=== PATIENT | female | born 1980 | race Caucasian/White ===

== ENCOUNTER 2017-10-04 08:46 | Day surgery (SDC) | payer OTHER, MEDICAID ==
[2017-10-04] MEDS ORDERED: ROPIvacaine 0.5% 30 ML INJECTION (J2795 PER 1MG) (08:47)
[2017-10-04] MEDS ORDERED: EPINEPHrine INJ 1 MG/ML 1ML AMP (08:47)
[2017-10-04 09:24] LABS: CONTROL LINE UCG INT CTR LINE PRESENT; URINE PREG TEST NEGATIVE (NEGATIVE)
[2017-10-04] MEDS: VANCOMYCIN HCL 1,000 MG, VIAL MATE ADAPTER 1 EACH in D5W 250 ML IV (09:30)
[2017-10-04] MEDS: LR 1,000 ML IV ×3 (09:49→17:18)
[2017-10-04] MEDS ORDERED: MIDAZOLAM INJ 2 MG/2 ML VIAL (J2250) As Ordered (10:21)
[2017-10-04] MEDS ORDERED: fentaNYL 100 MCG/2 ML INJECTION (J3010) As Ordered ×3 (10:21→12:09)
[2017-10-04] MEDS: fentaNYL 100 MCG/2 ML INJECTION (J3010) IV ×5 (10:34→15:30)
[2017-10-04] MEDS: MIDAZOLAM INJ 2 MG/2 ML VIAL (J2250) IV ×2 (10:34→10:36)
[2017-10-04] MEDS ORDERED: PROPOFOL 200 MG/20 ML VIAL As Ordered (11:07)
[2017-10-04] MEDS ORDERED: dexameTHASONE 4 MG/ML 1ML VIAL (J1100) As Ordered ×2 (11:08)
[2017-10-04] MEDS ORDERED: KETOROLAC 60 MG/2 ML VIAL (J1885) As Ordered (11:08)
[2017-10-04] MEDS ORDERED: ONDANSETRON 4MG/2ML VIAL (J2405) As Ordered ×2 (11:08→15:15)
[2017-10-04] MEDS: ROPIvacaine 0.5% 30 ML INJECTION (J2795 PER 1MG) As Ordered (12:10)
[2017-10-04] MEDS ORDERED: MEPERIDINE INJ 25 MG/ML VIAL (J2175) As Ordered (15:14)
[2017-10-04] MEDS: PERCOCET 5MG/325MG TAB PO ×2 (15:15→15:45)
[2017-10-04] MEDS ORDERED: PERCOCET 5MG/325MG TAB As Ordered (15:15)
[2017-10-04] MEDS: MEPERIDINE INJ 25 MG/ML VIAL (J2175) IV ×2 (15:15→15:20)
[2017-10-04] MEDS ORDERED: METOCLOPRAMIDE INJ 10MG/2ML VIAL (J2765) IV (15:30)
[2017-10-04] MEDS ORDERED: FLEET ENEMA PR (15:30)
[2017-10-04] MEDS ORDERED: ACETAMINOPHEN TAB 650MG DOSE (2X325MG) PO (15:30)
[2017-10-04] MEDS ORDERED: ONDANSETRON 4MG/2ML VIAL (J2405) IV (15:30)
[2017-10-04] MEDS ORDERED: MORPHINE 4 MG/ML 1ML VIAL/SYRINGE (J2270) IV (15:45)
[2017-10-04] MEDS: ANEXSIA, NORCO 7.5MG/325MG TABLET(HYDROCODONE/APAP) PO ×2 (17:18→21:09)
[2017-10-04] MEDS: MORPHINE 15 MG SA TAB PO (22:30)
[2017-10-04] MEDS: ONDANSETRON 4MG/2ML VIAL (J2405) IV (22:53)
[2017-10-05] MEDS: LR 1,000 ML IV ×2 (01:30→11:11)
[2017-10-05] MEDS: ANEXSIA, NORCO 7.5MG/325MG TABLET(HYDROCODONE/APAP) PO ×5 (02:17→19:46)
[2017-10-05] MEDS: ONDANSETRON 4MG/2ML VIAL (J2405) IV (07:57)
[2017-10-05] MEDS: HEPARIN SOD (PORCINE) 5000 UNITS/ML VIAL SQ ×2 (07:58→15:43)
[2017-10-05] MEDS: MIRALAX *UNIT DOSE* 17GM PACKET PO (09:21)
[2017-10-05] MEDS: MORPHINE 15 MG SA TAB PO (09:21)
[2017-10-05] MEDS: diazePAM 5 MG TAB PO (13:25)
== END 2017-10-05 20:00 | disposition home or self-care (01) ==
LOC: M SDC 08:46 → M MS5PR 16:10 → M SDC 10-05 20:00
DX: M22.42 Chondromalacia patellae, left knee (principal); M22.2X2 Patellofemoral disorders, left knee; K21.9 Gastro-esophageal reflux disease without esophagitis; Z98.84 Bariatric surgery status; Z79.899 Other long term (current) drug therapy
CPT/HCPCS: 27418

== ENCOUNTER → 2017-10-11 | Outpatient (CLI) | payer OTHER, MEDICAID | LOC: M RAD 13:46 | DX: M79.662 Pain in left lower leg (principal) | CPT/HCPCS: 93971 ==

== ENCOUNTER 2018-02-15 09:35 | Day surgery (SDC) | payer OTHER ==
[2018-02-15] MEDS: LR 1,000 ML IV ×4 (10:00→23:54)
[2018-02-15 10:20] LABS: CONTROL LINE UCG INT CTR LINE PRESENT; URINE PREG TEST NEGATIVE (NEGATIVE)
[2018-02-15] MEDS: BUPIVACAINE HCL 0.5% 30 ML VIAL As Ordered (11:17)
[2018-02-15] MEDS ORDERED: ROCURONIUM BROMIDE 50 MG/5 ML VIAL As Ordered (11:24)
[2018-02-15] MEDS ORDERED: LIDOCAINE 2% INJ 100 MG/5 ML SDV (FOR ANES.) As Ordered (11:24)
[2018-02-15] MEDS ORDERED: PROPOFOL 200 MG/20 ML VIAL As Ordered ×5 (11:24→12:23)
[2018-02-15] MEDS ORDERED: fentaNYL 100 MCG/2 ML INJECTION (J3010) As Ordered ×3 (11:25→13:52)
[2018-02-15] MEDS ORDERED: MIDAZOLAM INJ 2 MG/2 ML VIAL (J2250) As Ordered ×2 (11:25→13:38)
[2018-02-15] MEDS ORDERED: REMIFENTANIL 1MG 3ML VIAL As Ordered (11:32)
[2018-02-15] MEDS ORDERED: SCOPOLAMINE 1MG TRANSDERMAL PATCH As Ordered ×2 (11:36→11:39)
[2018-02-15] MEDS ORDERED: dexameTHASONE 4 MG/ML 1ML VIAL (J1100) As Ordered ×2 (11:59)
[2018-02-15] MEDS ORDERED: ONDANSETRON 4MG/2ML VIAL (J2405) As Ordered (13:07)
[2018-02-15] MEDS ORDERED: NEOSTIGMINE 10 MG/10 ML VIAL (J2710) As Ordered (13:07)
[2018-02-15] MEDS ORDERED: GLYCOPYRROLATE INJ 0.2 MG/ML 2 ML VIAL As Ordered (13:15)
[2018-02-15] MEDS ORDERED: KETOROLAC 60 MG/2 ML VIAL (J1885) As Ordered (13:16)
[2018-02-15] MEDS ORDERED: ePHEDrine SULFATE 25 MG/5 ML(5MG/ML) SYRINGE As Ordered (13:22)
[2018-02-15] MEDS ORDERED: ONDANSETRON 4MG/2ML VIAL (J2405) IV (14:00)
[2018-02-15] MEDS: fentaNYL 100 MCG/2 ML INJECTION (J3010) IV ×4 (14:22→14:50)
[2018-02-15] MEDS ORDERED: PERCOCET 5MG/325MG TAB As Ordered (14:45)
[2018-02-15] MEDS: PERCOCET 5MG/325MG TAB PO ×2 (14:50→15:17)
[2018-02-15] MEDS: SCOPOLAMINE 1MG TRANSDERMAL PATCH TOP (18:17)
[2018-02-15] MEDS: ONDANSETRON 4MG/2ML VIAL (J2405) IV (18:24)
[2018-02-15] MEDS: ANEXSIA, NORCO 7.5MG/325MG TABLET(HYDROCODONE/APAP) PO ×2 (18:24→22:32)
[2018-02-16] MEDS: ANEXSIA, NORCO 7.5MG/325MG TABLET(HYDROCODONE/APAP) PO ×2 (02:23→06:22)
== END 2018-02-16 08:40 | disposition home or self-care (01) ==
LOC: M SDC 02-16 08:40 → M MS5PR 15:50
DX: T84.84XA Pain due to internal orthopedic prosthetic devices, implants and grafts, initial encounter (principal); M22.42 Chondromalacia patellae, left knee; M23.42 Loose body in knee, left knee; K21.9 Gastro-esophageal reflux disease without esophagitis; E66.9 Obesity, unspecified; Z68.36 Body mass index [BMI] 36.0-36.9, adult; Z88.5 Allergy status to narcotic agent; Z79.899 Other long term (current) drug therapy; Z87.442 Personal history of urinary calculi; Z86.14 Personal history of Methicillin resistant Staphylococcus aureus infection; Z98.84 Bariatric surgery status
CPT/HCPCS: 20680

== ENCOUNTER 2018-02-28 13:07 | Emergency (ER) | payer OTHER ==
[2018-02-28 14:14] LABS: BASO # 0.1 10^3/uL (0.0-0.2); BASO % 0.5 % (0.0-1.0); EOS # 0.1 10^3/uL (0.0-0.50); HEMATOCRIT 35.9 % (36.0-47.0); IMMATURE GRANULOCYTE % 0.5 % (0-3.0); LYMPH # 2.3 10^3/uL (1.5-4.5); LYMPH % 24.1 % (24.0-44.0); MEAN CORPUSCULAR HEMOGLOBIN 24.6 pg (27.0-33.0); MEAN CORPUSCULAR HGB CONC 30.6 g/dl (32.0-36.5); MEAN CORPUSCULAR VOLUME 80.3 fl (80.0-96.0); MONO # 0.8 10^3/uL (0.0-0.8); MONO % 8.6 % (0.0-5.0); NEUTROPHILS # 6.1 10^3/uL (1.8-7.7); NEUTROPHILS % 65.3 % (36.0-66.0); PLATELET COUNT, AUTOMATED 338 10^3/uL (150-450); RED BLOOD COUNT 4.47 10^6/uL (4.00-5.40); RED CELL DISTRIBUTION WIDTH 16.7 % (11.5-14.5); WHITE BLOOD COUNT 9.4 10^3/uL (4.0-10.0)
[2018-02-28 14:26] LABS: INR 0.94; PROTHROMBIN TIME 12.6 SECONDS (12.1-14.4)
[2018-02-28 14:27] LABS: PARTIAL THROMBOPLASTIN TIME 22.9 SECONDS (25.4-37.6)
[2018-02-28 14:46] LABS: CONTROL LINE HCG INT CTR LINE PRESENT; HCG, SERUM QUALITATIVE NEGATIVE (NEGATIVE)
[2018-02-28 14:55] LABS: ALBUMIN 3.9 GM/DL (3.2-5.2); ALKALINE PHOSPHATASE 61 U/L (45-117); ALT/SGPT 20 U/L (12-78); ANION GAP 10 MEQ/L (8-16); AST/SGOT 25 U/L (7-37); BILIRUBIN,DIRECT < 0.1 MG/DL (0.0-0.2); BILIRUBIN,TOTAL 0.4 MG/DL (0.2-1.0); BLOOD UREA NITROGEN 10 MG/DL (7-18); CARBON DIOXIDE LEVEL 21 MEQ/L (21-32); CHLORIDE LEVEL 107 MEQ/L (98-107); CK-MB VALUE MASS < 1.0 NG/ML (<3.6); CPK CREATINE PHOSPHOKINASE 102 U/L (26-192); FREE T4 0.97 NG/DL (0.76-1.46); GLOMERULAR FILTRATION RATE > 60.0 (>60); GLUCOSE, FASTING 97 MG/DL (70-100); LIPASE 109 U/L (73-393); MB/CK RELATIVE INDEX 0.98 (< OR =4); POTASSIUM SERUM 4.5 MEQ/L (3.5-5.1); SODIUM LEVEL 138 MEQ/L (136-145); TOTAL PROTEIN 6.9 GM/DL (6.4-8.2); TROPONIN I < 0.02 NG/ML (< 0.10)
[2018-02-28] MEDS ORDERED: ISOVUE-370 76% 100ML VIAL (Q9967) As Ordered (15:03)
[2018-02-28 18:02] LABS: CK-MB VALUE MASS < 1.0 NG/ML (<3.6); CPK CREATINE PHOSPHOKINASE 75 U/L (26-192); MB/CK RELATIVE INDEX 1.33 (< OR =4); TROPONIN I < 0.02 NG/ML (< 0.10)
== END 2018-02-28 18:50 | disposition home or self-care (01) ==
LOC: M ED 13:07
DX: R07.89 Other chest pain (principal); R00.2 Palpitations; F41.9 Anxiety disorder, unspecified; Z98.84 Bariatric surgery status; Z79.899 Other long term (current) drug therapy; Z88.1 Allergy status to other antibiotic agents
CPT/HCPCS: Q9967

== ENCOUNTER 2018-12-08 05:45 | Inpatient (IN) | payer OTHER ==
--- NOTE | 2018-12-01 15:26 | HPE ---
DATE OF ANTICIPATED ADMISSION: 12/08/2018 ATTENDING PHYSICIAN: Dr. Ronald Fung CHIEF COMPLAINT: Left knee pain and stiffness. This is a pleasant 38-year-old female patient with left knee pain and stiffness, who has undergone multiple surgeries on the left knee. 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 Ronald Fung. ALLERGIES: VANCOMYCIN. She is also ALLERGIC to KEFLEX. CURRENT MEDICATIONS: - Abilify 2 mg one by mouth every other night - Ambien 12.5 mg one by mouth nightly as needed - diclofenac sodium 1% - gabapentin 300 mg two by mouth three times a day - Prozac 20 mg one by mouth daily PAST MEDICAL HISTORY: SVT. Acid reflux. Anxiety. Depression. PAST SURGICAL HISTORY: Knee arthroscopy, bilateral. Gastric bypass. Kidney stones. FAMILY HISTORY: Father: Heart disease, high cholesterol, hypertension, arthritis. Mother: Arthritis, cancer. SOCIAL HISTORY: Denies smoking, and rarely consumes alcohol. REVIEW OF SYSTEMS: Patient denies fever, chills, chest pain, shortness of breath, nausea, vomiting, diarrhea. Reports left knee pain and stiffness with weightbearing activities. PHYSICAL EXAM: Vital signs: Height 65 inches, weight 255, temperature 98.6, blood pressure 116/80, pulse 72, respirations 17. She is a normocephalic, atraumatic adult female, in no apparent distress. She ambulates in the clinic today with a nonantalgic gait. She has appropriate mood and affect, is alert and oriented. Neck is supple and nontender with no lymphadenopathy or jugular venous distention (JVD). S1 and S2 auscultated with no murmurs, rubs, gallops. Lungs clear to auscultation bilaterally. Abdomen soft, nontender. The left knee shows tenderness to palpation. There is no overlying rash or erythema. Overlying skin is intact. Distal neurovascular status is intact, and the left limb is well perfused. IMPRESSION: Left knee pain and patellar chondromalacia. PLAN: Consented for left knee diagnostic arthroscopy, patellar cartilage repair, and revision internal fixation tubercle nonunion with Dr. Ronald Fung.
[~2018-12-08] VITALS: Ht 165.1 cm; Wt 114.7 kg
[~2018-12-08 05:45] MED LIST: ABIL1TAB13 PO; AMBI12.52 PO; DITR5TAB PO; GABA-1171 PO; HYDR-3713 PO; LAMO200T2 PO; LIDO5OIN28 TD; MS C15TA8 PO; PRAZ2CAP PO; PROT20TA11 PO; PROZ20CA11 PO; RANI150T PO; VALI10TA PO; VALI5TAB PO; VICO5TAB17 PO
[2018-12-08] MEDS ORDERED: LR 1,000 ML IV ONE (06:00)
[2018-12-08] MEDS ORDERED: LIDOCAINE 1% MDV 20ML VIAL SQ PRN (06:00)
[2018-12-08] MEDS ORDERED: CLINDAMYCIN 900 MG in APPROPRIATE DILUENT 1 EA IV ONE ×2 (06:00→15:00)
[2018-12-08] MEDS ORDERED: fentaNYL 100 MCG/2 ML INJECTION (J3010) As Ordered ONE (06:35)
[2018-12-08] MEDS ORDERED: MIDAZOLAM INJ 2 MG/2 ML VIAL (J2250) As Ordered ONE ×2 (06:35→07:17)
[2018-12-08 06:42] LABS: URINE PREG TEST NEGATIVE (NEGATIVE)
[2018-12-08] MEDS ORDERED: SCOPOLAMINE 1MG TRANSDERMAL PATCH As Ordered ONE (07:10)
[2018-12-08] MEDS ORDERED: PROPOFOL 200 MG/20 ML VIAL As Ordered ONE (07:16)
[2018-12-08] MEDS ORDERED: fentaNYL 250 MCG/5 ML INJECTION (J3010) As Ordered ONE ×2 (07:16→10:23)
[2018-12-08] MEDS ORDERED: LIDOCAINE 2% INJ 100 MG/5 ML SDV (FOR ANES.) As Ordered ONE (07:16)
[2018-12-08] MEDS ORDERED: BUPIVACAINE HCL 0.5% 30 ML VIAL As Ordered ONE (07:21)
[2018-12-08] MEDS ORDERED: SCOPOLAMINE 1MG TRANSDERMAL PATCH TOP ONE (07:30)
[2018-12-08] MEDS ORDERED: ROCURONIUM BROMIDE 50 MG/5 ML VIAL As Ordered ONE (07:38)
[2018-12-08] MEDS ORDERED: PHENYLephrine HCL 500 MCG/5 ML (100MCG/ML) SYRINGE (J2370) As Ordered ONE (08:00)
[2018-12-08] MEDS ORDERED: fentaNYL 100 MCG/2 ML INJECTION (J3010) IV ONE (08:15)
[2018-12-08] MEDS ORDERED: MIDAZOLAM INJ 2 MG/2 ML VIAL (J2250) IV ONE (08:15)
[2018-12-08] MEDS ORDERED: KETOROLAC 60 MG/2 ML VIAL (J1885) As Ordered ONE (09:45)
[2018-12-08] MEDS ORDERED: ONDANSETRON 4MG/2ML VIAL (J2405) As Ordered ONE ×2 (09:45→11:21)
[2018-12-08] MEDS ORDERED: dexameTHASONE 4 MG/ML 1ML VIAL (J1100) As Ordered ONE (09:45)
[2018-12-08] MEDS ORDERED: METOCLOPRAMIDE INJ 10MG/2ML VIAL (J2765) As Ordered ONE (09:45)
[2018-12-08] MEDS ORDERED: NEOSTIGMINE 10 MG/10 ML VIAL (J2710) As Ordered ONE (09:46)
[2018-12-08] MEDS ORDERED: GLYCOPYRROLATE INJ 0.2 MG/ML 2 ML VIAL As Ordered ONE (09:46)
[2018-12-08] MEDS ORDERED: ACETAMINOPHEN 1000MG 100ML IV BTL (OFIRMEV) (J0131 PER 10MG) As Ordered ONE (09:46)
[2018-12-08] MEDS ORDERED: LIDOCAINE 1% MDV 20ML VIAL ONE (11:15)
[2018-12-08] MEDS ORDERED: dexameTHASONE 10 MG/1 ML VIAL PRES.FREE (J1100) ONE (11:15)
[2018-12-08] MEDS ORDERED: HYDROMORPHONE HCL 0.5 MG/ 0.5 ML SYRINGE (J1170 PER 1) As Ordered ONE (11:28)
[2018-12-08] MEDS: HYDROMORPHONE HCL 0.5 MG/ 0.5 ML SYRINGE (J1170 PER 1) IV PRN ×2 (11:30→11:35)
[2018-12-08] MEDS ORDERED: ANEXSIA, NORCO 7.5MG/325MG TABLET(HYDROCODONE/APAP) PO PRN (11:45)
[2018-12-08] MEDS ORDERED: LR 1,000 ML IV SCH ×2 (11:45→12:00)
[2018-12-08] MEDS ORDERED: fentaNYL 100 MCG/2 ML INJECTION (J3010) IV PRN (11:45)
[2018-12-08] MEDS ORDERED: ONDANSETRON 4MG/2ML VIAL (J2405) IV PRN ×2 (11:45→12:00)
[2018-12-08] MEDS ORDERED: PERCOCET 5MG/325MG TAB PO PRN (11:45)
[2018-12-08] MEDS ORDERED: MIRALAX *UNIT DOSE* 17GM PACKET PO PRN (12:00)
[2018-12-08] MEDS ORDERED: METOCLOPRAMIDE INJ 10MG/2ML VIAL (J2765) IV PRN (12:00)
--- NOTE | 2018-12-08 12:02 | REP ---
C-ARM VIEWS LEFT KNEE: Three C-arm views of the left knee are performed. Metallic screws are seen in the tibia. The final image shows that they have been removed. 5 seconds of fluoroscopy time utilized. Electronically Signed by Parish Phillip MD 12/08/2018 01:20 P
[2018-12-08 12:10] VITALS: BP 171/94
[2018-12-08 12:40] VITALS: BP 143/84
[2018-12-08 13:40] VITALS: BP 135/75
[2018-12-08 14:40] VITALS: BP 135/75
[2018-12-08] MEDS: ANEXSIA, NORCO 7.5MG/325MG TABLET(HYDROCODONE/APAP) PO PRN ×2 (14:48→20:06)
[2018-12-08] MEDS: GABAPENTIN 300 MG CAP PO SCH ×2 (14:48→20:06)
[2018-12-08] MEDS: MORPHINE 4 MG/ML 1ML VIAL/SYRINGE (J2270) IV PRN ×3 (14:48→23:11)
[2018-12-08 16:00] VITALS: BP 135/75
[2018-12-08 22:00] VITALS: BP 115/64
[2018-12-09] MEDS ORDERED: UNRESOLVED CLARIFICATION ENTRY XX SCH (00:01)
[2018-12-09] MEDS: ANEXSIA, NORCO 7.5MG/325MG TABLET(HYDROCODONE/APAP) PO PRN ×5 (02:20→22:37)
[2018-12-09 06:00] VITALS: BP 113/66
[2018-12-09] MEDS: GABAPENTIN 300 MG CAP PO SCH ×3 (08:26→21:17)
--- NOTE | 2018-12-09 09:46 | CR.PDOC ---
General Date of Consultation: Dec 09, 2018 Consultation REASON FOR CONSULTATION/CHIEF COMPLAINT: Medical co-management HISTORY OF PRESENT ILLNESS: 38 yo female POD #1 for surgical intervention for l eft knee pain. States she had 2-3 episodes of tachycardia/palpitations yesterday with dizziness. Denied chest pain, headaches, changes in vision, abdominal pain, N/V/D. Episodes resolved spontaneously after 2-3 minutes. She describes a history of SVT for the past 12-18 months, but recently had an ablation with no further episodes. ALLERGIES: Please see below. HOME MEDICATIONS: Please see below. PAST MEDICAL HISTORY: 1. SVT s/p ablation 2. GERD 3. anxiety/depression REVIEW OF SYSTEMS: Negative except as per HPI. PHYSICAL EXAMINATION: VITAL SIGNS: Please see below. GENERAL APPEARANCE: General, NAD, lying comfortably in bed HEENT: NC/AT, EOMI, PERRL RESPIRATORY: CTA B/L CARDIOVASCULAR: +S1S2, RRR ABDOMEN: soft, NT, +BS LABORATORY DATA: Please see below. ASSESSMENT/PLAN: 38 yo female POD #1 for left knee surgery secondary to left knee pain, consulted by orthopedics for medical co-management. #left knee pain - POD #1 left knee diagnostic arthroscopy, patellar cartilage repair, and revision internal fixation tubercle nonunion - follow as per ortho - pain control #SVT - continue to monitor for now, perhaps exacerbated by anaesthesia/surgery - carotid massage, however she states vagal maneuvers in the past actually made her palpitations worse #GERD - home meds #anxiety/depression - home meds #DVT prophylaxis - as per ortho Vital Signs/I&O Vital Signs Date Time Temp Pulse Resp B/P (MAP) Pulse Ox O2 Delivery O2 Flow Rate FiO2 12/09/18 09:18 16 12/09/18 06:00 97.0 68 113/66 (82) 97 12/08/18 13:40 2.0 I&O- Last 24 Hours up to 6 AM 12/09/18 06:00 Intake Total 3280 ml Output Total 2325 ml Balance 955 ml Allergies Coded Allergies: cephalexin (Verified Allergy, Unknown, 12/08/18) vancomycin (Verified Allergy, Unknown, red man's syndrome, 12/08/18) Home Medications Scheduled Aripiprazole (Abilify) 2 Mg Tab, 4 MG PO DAILY, (Reported) Fluoxetine HCl (Prozac) 20 Mg Cap, 60 MG PO QAM, (Reported) Lamotrigine (Lamotrigine) 200 Mg Tab, 400 MG PO BID, (Reported) Prazosin Hcl (Prazosin HCl) 2 Mg Cap, 4 MG PO QPM, (Reported) Zolpidem Tartrate (Ambien Cr) 12.5 Mg Tab, 12.5 MG PO QPM, (Reported) SUDARSHAN SANDOVAL MD Dec 09, 2018 09:43
[2018-12-09] MEDS: lamoTRIgine 100MG TAB PO SCH ×2 (10:11→21:16)
[2018-12-09] MEDS: FLUoxetine 20 MG CAP PO SCH (10:11)
[2018-12-09] MEDS: MORPHINE 4 MG/ML 1ML VIAL/SYRINGE (J2270) IV PRN (10:59)
[2018-12-09] MEDS: ARIPiprazole 2 MG TAB PO SCH (11:12)
[2018-12-09] MEDS: MORPHINE 15 MG SA TAB PO SCH ×2 (11:52→21:17)
[2018-12-09 14:41] VITALS: BP 110/56
--- NOTE | 2018-12-09 15:01 | RO ---
DATE OF PROCEDURE: 12/08/2018 PREOPERATIVE DIAGNOSES: 1. 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 2. Left knee painful hardware status post to tubercle osteotomy. POSTOPERATIVE DIAGNOSES: 1. 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 2. Left knee arthritis with several small loose bodies. 3. Left knee painful hardware. PROCEDURE: 1. Left knee arthroscopy with chondroplasty and loose body removal. 2. Left knee open patellar cartilage defect repair with a viable osteochondral allograft. 3. Left knee removal of hardware. SURGEON: Ronald Fung MD LOGISTICS CLERK: ROSE Thornton ANESTHESIA: General with preoperative nerve block. IV FLUIDS: Lactated Ringer's. ESTIMATED BLOOD LOSS: 25 mL. IMPLANTS: Arthrex 2.9 mm PushLock anchor times four. Arthrex Cartiform allograft. CLOSURE: Nylon. PROCEDURE: The patient was identified in the preoperative holding area. The left leg was marked by myself. She then had an abductor canal block by anesthesia. She was brought to the operating room, placed supine on a well-padded OR table. General anesthesia was induced. She had Venodyne boot on her right lower extremity for DVT prophylaxis. She received appropriate IV antibiotics within 1 hour of incision. A well-padded tourniquet was applied to the left thigh. Exam under anesthesia revealed a negative J sign. Range of motion from -3 to 130 degrees and stable to varus-valgus stress, grade 1A Shelby, negative posterior drawer. The left leg was then prepped and draped in a normal sterile fashion from the toes up to the tourniquet. Prior to incision a time out performed per hospital protocol. Bakari Salazar was present for the entire procedure and participated in all essential portions of the procedure. This included patient positioning, draping, holding retractors, maintaining eversion of the patella throughout the majority the case, assisting with placing anchors and passing sutures and wound closure. The left leg was exsanguinated with an Esmarch bandage and tourniquet inflated to 300 mmHg. Total tourniquet time was 129 minutes. Previous anterolateral portal from initial scope was opened with an 11 blade, 30 degree arthroscope introduced into the joint. Diagnostic arthroscopy revealed grade 4 chondral defect in the patella, basically the central to distal patella and then extending midpoint at the medial facette over laterally. The central and medial aspect of the trochlea were pristine. There was grade 2 chondromalacia in the far lateral portion of the trochlea. Distally the trochlea was also pristine. Medial compartment was entered. There was grade 1 chondromalacia. No meniscus tears. ACL was inspected and was unremarkable. The leg was brought to [id number] position where there was grade 2 chondromalacia of the lateral tibial plateau with several small loose bodies. Grade 1 to 2 chondromalacia of lateral femoral condyle. A medial portal was developed and a shaver used to remove several small loose bodies of articular cartilage and a chondroplasty to the lateral tibial plateau and a chondroplasty to the patella. The knee was irrigated and drained. There were no contraindications to cartilage repair surgery. I then proceeded with a medial parapatellar arthrotomy. The previous longitudinal incision was opened with a 15 blade and a fresh 10 blade used to perform the arthrotomy. Patella was everted. The chondral defect was inspected. This measured 25 x 15 mm. A fresh 15 blade and ring curette were used to remove prior cartilage allograft still remaining in the defect as well as some fibrocartilage. Ring curette was used to remove the calcified cartilage layer, but not violate subchondral bone. The Arthrex viable osteochondral allograft measuring 20 x 25 mm was then thawed and open sterilely in the back table. It was approximated to the defect and a 15 blade used to the shape the allograft to fit the defect anatomically. Four separate strands of #4-0 Vicryl were then passed in a horizontal mattress fashion per routine. The PowerPick was used to make five drill holes in the central aspect of the defect with a 3-4 mm bridge. I then marked the allograft in the proposed location of the drill holes for the PushLock anchors. I then used the appropriate drill bit for the short 2.9 mm PushLock and created four anchors basically at the 12, 3, 6 and 9 o'clock positions. The Vicryl sutures were then loaded through a PushLock anchor, which was then tensioned, malleted into place per routine. There was excellent fixation on all four anchors. The graft at this point fit very well. #6-0 Vicryl was then used to place several simple sutures where ever it looked like an edge might want to lift up and this nicely reinforced the repair. I should have mentioned that the knee was extensively irrigated prior to placing the allograft. I then re-irrigated. TISSEEL was then used to reinforce the repair at the juncture of the allograft and iqugmiut healthy articular cartilage of the patella. That was allowed to set for 10 minutes. The patella was then reduced and the arthrotomy closed with figure-of-8 #0 Vicryl sutures with the knee in 40 degrees of flexion. I then used the large C-arm to localize to two tubercle osteotomy screws. I recent CT scan showed excellent bony union from use of the bone stimulator. Two screws were then removed percutaneously with appropriate screwdriver. AP and lateral x-rays were taken a large C-arm. Screws had been completely removed without incident. Tubercle osteotomy on C-arm appeared healed. Next, the incisions were re-irrigated and portals closed with nylon suture. #2-0 Vicryl for the arthrotomy incisions via running #3-0 nylon. I injected 0.5% Marcaine without epinephrine as a local anesthetic at the end of the case. Then bulky sterile dressing was applied. I should have mentioned that the tourniquet was let down around 129 minutes and there was excellent hemostasis. The patient was placed into a hinged knee brace locked in extension. At the time of this dictation she is about to transferred to postanesthesia care unit (PACU) in stable condition. ANESTHESIA The
[2018-12-09] MEDS ORDERED: PRAZOSIN 1 MG CAP PO SCH (21:00)
[2018-12-09] MEDS ORDERED: zolPIDEM CR 6.25MG TABLET (AMBIEN CR) PO SCH (21:00)
[2018-12-09 21:04] VITALS: BP 117/65
[2018-12-09 21:18] VITALS: BP 128/67
[2018-12-10] MEDS: ANEXSIA, NORCO 7.5MG/325MG TABLET(HYDROCODONE/APAP) PO PRN (05:38)
[2018-12-10 06:15] VITALS: BP 116/65
[2018-12-10] MEDS: MORPHINE 15 MG SA TAB PO SCH (08:23)
[2018-12-10 08:30] VITALS: BP 118/76
[2018-12-10] MEDS: ARIPiprazole 2 MG TAB PO SCH (08:52)
[2018-12-10] MEDS: lamoTRIgine 100MG TAB PO SCH (08:52)
[2018-12-10] MEDS: FLUoxetine 20 MG CAP PO SCH (08:52)
[2018-12-10] MEDS: GABAPENTIN 300 MG CAP PO SCH (08:53)
--- NOTE | 2018-12-11 08:59 | IPN ---
DATE: 12/10/2018 CHIEF COMPLAIN: Postoperative day #2 left knee arthroscopy, chondroplasty, open patellar cartilage repair with a viable osteochondral allograft. HISTORY OF PRESENT ILLNESS: This pleasant, 38-year-old female underwent knee surgery two days ago. She is doing well. She is in a little bit of pain and discomfort still, but understands her weightbearing restrictions and followup. Nursing had no concerns. PHYSICAL EXAM: Vital signs: Blood pressure 116/65. Pulse rate 75. Respiratory rate 15 and 96% on room air. Dressings in situ. Left knee is overwrapped with 6 inch Laith bandage. No strikethrough on the dressing. Foot is warm and well perfused. Pedal pulses are normal. She has normal sensation throughout foot. She can wiggle her toes, dorsiflex and plantarflex her foot. ASSESSMENT AND PLAN: 38-year-old female will be discharged home today. She understands her weightbearing restrictions and followup. She had no further questions.
== END 2018-12-10 11:15 | disposition home or self-care (01) | DRG 489 ==
LOC: M OR 05:45 → M MS5PR 12:10
PROVIDERS: ADMIT Orthopaedic Surgery; ATTEND Orthopaedic Surgery
PROC: 0SQD0ZZ Repair Left Knee Joint, Open Approach (ICD-10-PCS; principal; 2018-12-08 07:30)
DX: M22.42 Chondromalacia patellae, left knee (principal); M17.12 Unilateral primary osteoarthritis, left knee; Z79.899 Other long term (current) drug therapy; F41.9 Anxiety disorder, unspecified; F32.9 Major depressive disorder, single episode, unspecified; K21.9 Gastro-esophageal reflux disease without esophagitis; Z88.8 Allergy status to other drugs, medicaments and biological substances

== ENCOUNTER → 2019-01-31 | Outpatient (CLI) | payer OTHER ==
[~2019-01-31] MED LIST changes: +E-Z-GAS II EFFERVESCENT PACKET (SODIUM BICARB./CITRIC ACID/SIMETHICONE) As Ordered ONE; +E-Z-HD 98% w/w 340GM SUSP BTL As Ordered ONE; +E-Z-PAQUE 96% w/w SUSP 176GM BTL As Ordered ONE
--- NOTE | 2019-01-31 16:42 | REP ---
UPPER GI SINGLE CONTRAST The procedure was performed under the direct supervision of Dr. Phillip. The images were reviewed with Dr. Phillip. The hedge trimmer film shows no organomegaly or pathological masses. The test gas pattern is nonspecific. There is an IUD in the central pelvis. There are sutures noted in the left upper quadrant consistent with the patient's history of Radha-en-Y gastric bypass. Liquid barium was administered in the erect and prone oblique positions in order to perform a single contrast upper GI examination. The oral and pharyngeal stages of deglutition are unremarkable. Esophageal transport is prompt and efficient and there is no esophagitis stricture or mucosal ring. There is a sliding type hiatal hernia. There is gastroesophageal reflux demonstrated to the level of the thoracic inlet. The contrast passes through the anastomoses without delay. There is no evidence of stricture or obstruction. There is no evidence of gastritis neoplasm or ulcer disease. The visualized portion of the proximal small bowel appears normal in course and caliber. Impression: There is a sliding type hiatal hernia. There is gastroesophageal reflux demonstrated to above the level of the roma. Postsurgical changes consistent with the patient's history of Radha-en-Y gastric bypass. 0.9 minutes of fluoroscopy time was utilized for this procedure. Electronically Signed by ISAAC Giordano 01/31/2019 02:28 P Electronically Signed by Parish Phillip MD 01/31/2019 04:33 P
== END ==
LOC: M RAD 08:54
PROVIDERS: ATTEND Surgery
DX: R63.5 Abnormal weight gain (principal); Z98.84 Bariatric surgery status; K44.9 Diaphragmatic hernia without obstruction or gangrene; K21.9 Gastro-esophageal reflux disease without esophagitis

== ENCOUNTER → 2020-08-23 | Outpatient (CLI) | payer OTHER ==
[~2020-08-23] MED LIST changes: -E-Z-GAS II EFFERVESCENT PACKET (SODIUM BICARB./CITRIC ACID/SIMETHICONE) As Ordered ONE; -E-Z-HD 98% w/w 340GM SUSP BTL As Ordered ONE; -E-Z-PAQUE 96% w/w SUSP 176GM BTL As Ordered ONE; -LAMO200T2 PO; +LAMO200T3 PO
--- NOTE | 2020-08-23 15:26 | REP ---
INDICATION: PAIN AFTER FALL COMPARISON: None. TECHNIQUE: AP, lateral, bilateral oblique views. FINDINGS: Significant diffuse soft tissue swelling noted. Ankle mortise intact. No acute fracture or dislocation. IMPRESSION: Significant soft tissue swelling. No acute fracture or dislocation. <Electronically signed by Codey Hope > 08/23/20 1522
== END ==
LOC: M WUC 14:47
PROVIDERS: ATTEND Nurse Practitioner Family
DX: M25.571 Pain in right ankle and joints of right foot (principal); W10.8XXA Fall (on) (from) other stairs and steps, initial encounter

== ENCOUNTER 2020-08-27 22:59 | Inpatient (IN) | payer OTHER ==
[~2020-08-27] VITALS: Ht 162.6 cm; Wt 122.7 kg
[2020-08-27] MEDS ORDERED: IBUP80TA PO (23:18)
[2020-08-27] MEDS ORDERED: TOPI25TA10 PO (23:26)
[2020-08-27] MEDS ORDERED: LOPE1CAP5 PO (23:26)
[2020-08-27] MEDS ORDERED: ARIP1TAB2 PO (23:26)
[2020-08-27] MEDS ORDERED: BENZ0.5T23 PO (23:26)
[2020-08-27] MEDS ORDERED: CYAN1000VL IM (23:26)
[2020-08-27] MEDS ORDERED: CLON0.5T2 PO (23:26)
[2020-08-27] MEDS ORDERED: FERR325T18 PO (23:26)
[2020-08-27] MEDS ORDERED: METF500T13 PO (23:26)
[2020-08-27] MEDS ORDERED: OMEP-218 PO (23:26)
[2020-08-28 00:42] LABS: HEMATOCRIT 47.3 % (36.0-47.0); HEMOGLOBIN 15.4 g/dl (12.0-15.5); MEAN CORPUSCULAR HEMOGLOBIN 32.3 pg (27.0-33.0); MEAN CORPUSCULAR HGB CONC 32.6 g/dl (32.0-36.5); MEAN CORPUSCULAR VOLUME 99.2 fl (80.0-96.0); PLATELET COUNT, AUTOMATED 302 10^3/uL (150-450); RED BLOOD COUNT 4.77 10^6/uL (4.00-5.40); WHITE BLOOD COUNT 8.5 10^3/uL (4.0-10.0)
[2020-08-28 01:02] LABS: HCG, SERUM QUALITATIVE NEGATIVE (NEGATIVE)
--- NOTE | 2020-08-28 01:02 | REPVR ---
PROCEDURE INFORMATION: Exam: CT Head Without Contrast Exam date and time: 08/28/2020 12:00 AM Age: 40 years old Clinical indication: Altered mental status/memory loss; Confusion or disorientation; Additional info: AMS TECHNIQUE: Imaging protocol: Computed tomography of the head without contrast. Radiation optimization: All CT scans at this facility use at least one of these dose optimization techniques: automated exposure control; mA and/or kV adjustment per patient size (includes targeted exams where dose is matched to clinical indication); or iterative reconstruction. COMPARISON: CT Head without contrast 06/15/2015 9:27 PM FINDINGS: Brain: Normal. No hemorrhage. Unremarkable white matter. No mass effect. Cerebral ventricles: No ventriculomegaly. Bones/joints: Unremarkable. No acute fracture. Paranasal sinuses: Visualized sinuses are unremarkable. No fluid levels. Mastoid air cells: Visualized mastoid air cells are well aerated. Soft tissues: Unremarkable. IMPRESSION: No acute intracranial abnormality. Electronically signed by: Ryder Goldstein On 08/28/2020 01:01:29 AM
[2020-08-28 01:08] LABS: ACETAMINOPHEN LEVEL < 2.0 UG/ML (10.0-30.0); ALBUMIN 3.5 GM/DL (3.2-5.2); ALT/SGPT 29 U/L (12-78); BILIRUBIN,DIRECT 0.2 MG/DL (0.0-0.2); BILIRUBIN,TOTAL 0.5 MG/DL (0.2-1.0); BLOOD UREA NITROGEN 8 MG/DL (7-18); CALCIUM LEVEL 8.7 MG/DL (8.5-10.1); CARBON DIOXIDE LEVEL 23 MEQ/L (21-32); CHLORIDE LEVEL 109 MEQ/L (98-107); CREATININE FOR GFR 0.92 MG/DL (0.55-1.30); ETHYL ALCOHOL (ETHANOL) < 0.003 % (0.000-0.010); GLOMERULAR FILTRATION RATE > 60.0 (>58); GLUCOSE, FASTING 98 MG/DL (70-100); POTASSIUM SERUM 3.8 MEQ/L (3.5-5.1); SALICYLATE LEVEL < 1.7 MG/DL (5.0-30.0); SODIUM LEVEL 140 MEQ/L (136-145); TOTAL PROTEIN 6.6 GM/DL (6.4-8.2)
[2020-08-28 01:14] LABS: AMPHETAMINES LEVEL URINE NEGATIVE (NEGATIVE); BARBITURATES URINE NEGATIVE (NEGATIVE); BENZODIAZEPINES URINE NEGATIVE (NEGATIVE); CANNABINOIDS URINE NEGATIVE (NEGATIVE); COCAINE METABOLITE URINE NEGATIVE (NEGATIVE); METHADONE URINE NEGATIVE (NEGATIVE); OPIATES URINE NEGATIVE (NEGATIVE); PHENCYCLIDINE URINE NEGATIVE (NEGATIVE)
--- NOTE | 2020-08-28 01:27 | REPVR ---
PROCEDURE INFORMATION: Exam: XR Right Ankle Exam date and time: 08/28/2020 1:17 AM Age: 40 years old Clinical indication: Pain; Ankle; Right; Additional info: Fall TECHNIQUE: Imaging protocol: XR Right ankle. Views: 3 or more views. COMPARISON: CR ANKLE COMPLETE 08/23/2020 3:07 PM FINDINGS: Bones/joints: Normal. Soft tissues: Soft tissue swelling greater laterally. IMPRESSION: No acute osseous abnormality. Electronically signed by: Ryder Goldstein On 08/28/2020 01:27:19 AM
[2020-08-28 01:53] LABS: FREE T4 1.16 NG/DL (0.76-1.46)
[2020-08-28] MEDS ORDERED: MOM 30ML SUSPENSION UDC PO PRN (01:55)
[2020-08-28] MEDS ORDERED: ABIL10TA9 PO (02:24)
[2020-08-28] MEDS ORDERED: ABIL20TA5 PO (02:24)
[2020-08-28] MEDS ORDERED: BENZ-52 PO (02:24)
[2020-08-28 02:32] LABS: RSV AMPLIFICATION NEGATIVE (NEGATIVE)
[2020-08-28] MEDS ORDERED: MIDOTAB PO (02:34)
[2020-08-28] MEDS ORDERED: [UNRECOGNIZED DRUG - CODE] SL (02:34)
[2020-08-28] MEDS ORDERED: LAMO100T3 PO (02:34)
[2020-08-28] MEDS ORDERED: MULT-40 PO (02:34)
[2020-08-28] MEDS ORDERED: IBUP1TAB7 PO (02:34)
[2020-08-28] MEDS ORDERED: IBUP-1857 PO (02:34)
[2020-08-28] MEDS ORDERED: TOPI50TA9 PO (02:34)
[2020-08-28 03:43] VITALS: BP 128/85
[2020-08-28] MEDS ORDERED: BENZTROPINE 1 MG TAB PO PRN (03:45)
[2020-08-28] MEDS: metFORMIN (GLUCOPHAGE) 500MG TAB PO SCH ×2 (07:24→17:16)
[2020-08-28] MEDS ORDERED: ARIPiprazole 10 MG TAB PO SCH ×2 (09:00→21:00)
[2020-08-28] MEDS: TOPIRAMATE (TopAMAX) 25 MG TAB PO SCH ×2 (09:17→21:33)
[2020-08-28] MEDS: FLUoxetine 20 MG CAP PO SCH (09:17)
[2020-08-28] MEDS: clonazePAM 0.5 MG TAB PO SCH ×2 (09:17→21:32)
[2020-08-28] MEDS: lamoTRIgine 100MG TAB PO SCH ×2 (09:17→21:33)
[2020-08-28] MEDS: FERROUS SULFATE 325MG TAB PO SCH (09:18)
[2020-08-28] MEDS: OMEPRAZOLE 20 MG CAP PO SCH (09:18)
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
[2020-08-28] MEDS: ARIPiprazole 10 MG TAB PO SCH ×2 (13:00→21:32)
--- NOTE | 2020-08-28 14:36 | HPEPDOC ---
[facility] Medical History & Physical Date of Admission Aug 28, 2020 Date of Service: Aug 28, 2020 History and Physical CHIEF COMPLAINT: psychotic behavior HISTORY OF PRESENT ILLNESS: Patient is a 40 -year-old , female, who was brought to the ED by her after exhibiting psychotic symptoms and bizarre behaviors. This morning she denies any medical complaints. She notes she missed a step and hurt her right foot. She attributes this to impaired vision from her new glasses. She denies chest pain, shortness of breath, abdominal pain, N/V/D. PAST MEDICAL HISTORY: ALLERGIES: Please see below. REVIEW OF SYSTEMS: Negative except as per HPI HOME MEDICATIONS: Please see below. PHYSICAL EXAMINATION: VITAL SIGNS: See below General: NAD, lying comfortably in bed HEENT: NC/AT, EOMI Lungs: CTA B/L Heart: +S1S2, RRR Abd: obese, soft, NT, +BS Ext: trace edema, right foot in bandages LABORATORY DATA: See below. MICROBIOLOGY: Please see below. A/P: 40 yo female admitted to [facility] for psychotic behavior. #psychosis - as per primary team - psychiatry #right foot injury - denies any symptoms - x-rays on 08/23, 08/28 no acute pathology - previously seen in ED - no acute findings Thank you for this consultation. Please re-consult as needed. Vital Signs Vital Signs Date Time Temp Pulse Resp B/P (MAP) Pulse Ox O2 Delivery O2 Flow Rate FiO2 08/28/20 03:43 98.5 100 18 128/85 (99) 97 Room Air Laboratory Data Labs 24H Laboratory Tests 2 08/28/20 00:19: Nucleated Red Blood Cells % (auto) 0.0, Anion Gap 8, Glomerular Filtration Rate > 60.0, Calcium Level 8.7, Total Bilirubin 0.5, Direct Bilirubin 0.2, Aspartate Amino Transf (AST/SGOT) 29, Alanine Aminotransferase (ALT/SGPT) 29, Alkaline Phosphatase 75, Total Protein 6.6, Albumin 3.5, Albumin/Globulin Ratio 1.1L, Thyroid Stimulating Hormone (TSH) 6.020H, Free Thyroxine 1.16, Human Chorionic Gonadotropin, Qual NEGATIVE, Salicylates Level < 1.7L, Urine Opiates Screen NEGATIVE, Urine Methadone Screen NEGATIVE, Acetaminophen Level < 2.0L, Urine Barbiturates Screen NEGATIVE, Urine Phencyclidine Screen NEGATIVE, Urine Amphetamines Screen NEGATIVE, Urine Benzodiazepines Screen NEGATIVE, Urine Cocaine Metabolite Screen NEGATIVE, Urine Cannabinoids Screen NEGATIVE, Ethyl Alcohol Level < 0.003 08/28/20 01:36: Coronavirus (COVID-19)(PCR) NEGATIVE, Influenza Type A (RT-PCR) NEGATIVE, Influenza Type B (RT-PCR) NEGATIVE, Respiratory Syncytial Virus (PCR) NEGATIVE CBC/BMP Laboratory Tests 08/28/20 00:19 Home Medications Scheduled Aripiprazole (Abilify) 10 Mg Tablet, 10 MG PO QHS Aripiprazole (Abilify) 20 Mg Tablet, 20 MG PO DAILY Clonazepam (Clonazepam) 0.5 Mg Tablet, 0.5 MG PO BID Cyanocobalamin (Cyanocobalamin Injection) 1,000 Mcg/1 Ml Vial, 1,000 MCG IM QMONTH Ferrous Sulfate (Ferrous Sulfate) 325 Mg Tablet, 325 MG PO DAILY Fluoxetine HCl (Prozac) 20 Mg Cap, 60 MG PO DAILY Lamotrigine (Lamotrigine) 100 Mg Tablet, 100 MG PO BID Metformin HCl (Metformin HCl) 500 Mg Tablet, 500 MG PO BID Multivitamin (Multivitamins) 1 Each Tablet, 1 TAB PO DAILY Omeprazole (Omeprazole) 20 Mg Capsule.dr, 20 MG PO DAILY Prazosin Hcl (Prazosin HCl) 2 Mg Cap, 6 MG PO QHS Topiramate (Topiramate) 50 Mg Tablet, 50 MG PO BID Zolpidem Tartrate (Ambien Cr) 12.5 Mg Tab, 12.5 MG PO QHS Scheduled PRN Acetaminophen/Pyrilamine/Caff (Midol Caplet) 1 Each Tablet, 1 TAB PO Q8H PRN for PAIN Benztropine Mesylate (Benztropine Mesylate) 1 Mg Tablet, 3 MG PO BID PRN for EXTRAPYRAMIDAL SYMPTOMS Ibuprofen (Ibuprofen) 800 Mg Tablet, 800 MG PO TID PRN for PAIN Ibuprofen/Acetaminophen (Advil Dual Action 250Mg-125Mg) 125 Mg-250 Mg Tablet, 1 TAB PO Q4H PRN for PAIN Zolpidem Tartrate (Edluar) 5 Mg Tab.subl, 5 MG SL QHS PRN for INSOMNIA Allergies Coded Allergies: vancomycin (Verified Allergy, Unknown, red man's syndrome, 12/08/18) A-FIB/CHADSVASC A-FIB History Current/History of A-Fib/PAF?: No SUDARSHAN SANDOVAL MD Aug 28, 2020 14:36
[2020-08-28 16:00] VITALS: BP 130/76
[2020-08-28 16:10] VITALS: BP 128/73
[2020-08-28] MEDS ORDERED: OLANZapine 5 MG TAB PO SCH (21:00)
[2020-08-28] MEDS: PRAZOSIN 1 MG CAP PO SCH (21:32)
[2020-08-28] MEDS: OLANZapine 2.5MG TABLET PO SCH (21:33)
[2020-08-29 06:43] VITALS: BP 138/83
[2020-08-29] MEDS: metFORMIN (GLUCOPHAGE) 500MG TAB PO SCH ×2 (08:34→17:16)
[2020-08-29] MEDS: FERROUS SULFATE 325MG TAB PO SCH (08:34)
[2020-08-29] MEDS: lamoTRIgine 100MG TAB PO SCH ×2 (08:35→21:25)
[2020-08-29] MEDS: clonazePAM 0.5 MG TAB PO SCH ×2 (08:35→21:25)
[2020-08-29] MEDS: TOPIRAMATE (TopAMAX) 25 MG TAB PO SCH ×2 (08:35→21:25)
[2020-08-29] MEDS: FLUoxetine 20 MG CAP PO SCH (08:36)
[2020-08-29] MEDS: OMEPRAZOLE 20 MG CAP PO SCH (08:36)
[2020-08-29] MEDS: ARIPiprazole 10 MG TAB PO SCH ×2 (08:36→21:25)
[2020-08-29 09:00] VITALS: BP 132/70
[2020-08-29 09:27] LABS: CHOLESTEROL RISK RATIO 3.254 (<5)
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
[2020-08-29] MEDS ORDERED: OLANZapine ORAL DISINTEGRATING TAB 5MG PO ONE (15:05)
[2020-08-29 15:25] LABS: APPEARANCE, URINE CLOUDY (CLEAR); BACTERIA, URINE AUTO 3+ (NEGATIVE); BILIRUBIN, URINE AUTO NEGATIVE (NEGATIVE); BLOOD, URINE BLOOD 1+ (NEGATIVE); COLOR, URINE YELLOW (YELLOW); GLUCOSE, URINE (UA) AUTO NEGATIVE (NEGATIVE); KETONE, URINE AUTO NEGATIVE (NEGATIVE); LEUKOCYTE ESTERASE, URINE AUTO 3+ (NEGATIVE); MUCUS, URINE SMALL (NEGATIVE); NITRITE, URINE AUTO NEGATIVE (NEGATIVE); PROTEIN, URINE AUTO NEGATIVE (NEGATIVE); RBC, URINE AUTO 9 /HPF (0-3); SPECIFIC GRAVITY URINE AUTO 1.006 (1.002-1.035); SQUAMOUS EPITHELIAL CELL UR AU 8 /HPF (0-6); UROBILINOGEN, URINE AUTO 0.2 mg/dL (0.0-2.0); WBC, URINE AUTO 18 /HPF (0-3)
[2020-08-29 16:52] VITALS: BP 124/60
[2020-08-29 16:53] VITALS: BP 124/60
[2020-08-29] MEDS: OLANZapine 2.5MG TABLET PO SCH (21:25)
[2020-08-29] MEDS: PRAZOSIN 1 MG CAP PO SCH (21:26)
[2020-08-30] MEDS: metFORMIN (GLUCOPHAGE) 500MG TAB PO SCH ×2 (07:33→17:14)
[2020-08-30] MEDS: ARIPiprazole 10 MG TAB PO SCH ×2 (09:32→20:52)
[2020-08-30] MEDS: lamoTRIgine 100MG TAB PO SCH ×2 (09:32→20:52)
[2020-08-30] MEDS: FLUoxetine 20 MG CAP PO SCH (09:32)
[2020-08-30] MEDS: clonazePAM 0.5 MG TAB PO SCH ×2 (09:32→20:51)
[2020-08-30] MEDS: FERROUS SULFATE 325MG TAB PO SCH (09:33)
[2020-08-30] MEDS: TOPIRAMATE (TopAMAX) 25 MG TAB PO SCH ×2 (09:33→20:52)
[2020-08-30] MEDS: OMEPRAZOLE 20 MG CAP PO SCH (09:33)
--- NOTE | 2020-08-30 10:38 | MHIPNPDOC ---
[facility] Progress Note Progress Note DATE OF SERVICE: 08/30/20 HISTORY: Patient is a 40 -year-old , Domiciled, , female, who was brought to the ED by her after exhibiting psychotic symptoms and bizarre behaviors. Patient continued to be hypomanic, paranoid and delusional.She attempted to explain what brought her to the ED. She said that her children and were worried about her because she was " very incoherent", Said they had an intervention for her as a family yesterday but she continued to be incoherent. Says that she fell out off her bed at 3 o'clock in the morning and her brought her to the ED. PER ED NOTE; Pt brought to ED by spouse for MHE, pt has reportedly been decompensating for past month exhibiting psychotic sx's/bizarre behaviors. Pt and spouse are pleasant/cooperative, spouse brought pt to ED due to pt decompensating in past month. Pt has hx of Bipolar/Schizoaffective d/o, no prior psych admissions, is seen at [facility] and has been compliant with tx and medications. Per pt and spouse, pt has been decompensating for past month since medication changes, pt also had been drinking regularly but "cut way down" in past 2 weeks, denies any drug use. In past month pt has been more disorganized and confused at times, unable to follow conversations and then accusing others of changing the subject, making bizarre references per spouse "that have nothing to do with what is going on or what we were discussing". Pt also admits to feeling increasingly paranoid, feeling others are talking about her. PT reports AH but denies any commands, states the voices are getting more frequent. Pt also reports VH, seeing various animals in the home including a cat they do not own, another dog(they only have one) and a "stallion", pt has been seen by spouse "petting" animals that are not there. Pt and spouse provided several more examples of various hallucinations and bizarre behaviors from past month. Per spouse, earlier tonight pt called a friend out of state who is also a SW and spoke "gibberish" to her, friend spoke with spouse and suggested he bring pt to ED. Pt and spouse state that things are getting progressively worse, pt denies SI/HI but states "I can't take it anymore". PT is remains pleasant during interview, appears anxious and disheveled, denies drug use however admits to long hx of ETOH abuse, spouse states she "stopped a week ago because I wouldn't buy her anymore alcohol", however pt she had used ETOH in past 24 hours. VITAL SIGNS: See below. CURRENT MEDICATIONS: See below. MENTAL STATUS EXAMINATION: Patient is a 40 -year-old , Domiciled, , female, who was brought to the ED by her after exhibiting psychotic symptoms and bizarre behaviors. General Appearance: unkempt, hospital scrubs/clothing Build: overweight Demeanor: preoccupied Eye Contact: average Activity: anxious Behavior: cooperative Speech: conversant Mood: hypomanic Affect: disorganized Thought Process: flight of ideas, disorganized and scattered Thought Content (Delusions): denies SI, HI, AVH Thought Content (Other): mildly grandiose Thought Content (Aggressive): none reported Perception (Hallucinations): none reported Perception (Other): none reported Cognition (Impairment of): attention/concentration Cognition(Intelligence Est.): borderline Oriented: Awake, Alert, Oriented times three Insight: poor Judgment: Poor Psychosis: Denies DIAGNOSES: Schizoaffective, Bipolar type. ASSESSMENT: Patient is seen today. States she is not rested today because her room mate talked all night long about cats. Reports that her mood is "fine" until her room mate will irritate her. I think that her spending will over take the cast. Reports that she is anxious in general. Reviewed the medication changes and she reports that she is more pleasant. Reports that she is communicating with her , wants to see her kids but understands that there are visiting rules. Reports that her children were driving her crazy the night that she came in, the kid had messed up the house, her was nonchalant about the mess. She reports being upset when the children stepped on a box that had been delivered. She wanted to be alone. Reports that group therapy is not for her. " Reports that she is doing better. When asked about her history of drinking she reports that she drinks everyday, "my is not for drinking and he will say, "You're drunk" " She doesn't believe that she drinks too much. She reports no treatment in the past. "I have been through the thing with discontinuing muscles. I got a shot in my butt because we were out of town." Reports that she does not want to attend groups because peers are fighting in the groups - "They are fighting about the color of orange. Why is this the color orange?" Patient is observed to be scattered, manic, tangential, delusional, euphoric, having flight of ideas, and making nonsensical statements. MANAGEMENT PLAN: Continue all medications. Continue to taper Abilify and titrate Olanzapine. TIME SPENT: 25 minutes. Vital Signs Vital Signs Date Time Temp Pulse Resp B/P (MAP) Pulse Ox O2 Delivery O2 Flow Rate FiO2 08/29/20 21:26 121/79 08/29/20 16:53 97.7 92 16 Room Air 08/29/20 06:43 98 Laboratory Data 24H Labs Laboratory Tests 2 08/29/20 15:02: Urine Color YELLOW, Urine Appearance CLOUDYH, Urine pH 8.0, Urine Specific [place] 1.006, Urine Protein NEGATIVE, Urine Glucose (Auto)(UA) NEGATIVE, Urine Ketones (Auto) NEGATIVE, Urine Blood 1+H, Urine Nitrite NEGATIVE, Urine Bilirubin NEGATIVE, Urine Urobilinogen 0.2, Urine Leukocyte Esterase (Auto) 3+H, Urine WBC (Auto) 18H, Urine RBC (Auto) 9H, Urine Hyaline Casts (Auto) 0, Urine Bacteria (Auto) 3+H, Urine Squamous Epithelial Cells 8, Urine Mucus (Auto) SMALL, Urine Sperm (Auto) Current Medications Current Medications Medications (Trade) Dose Ordered Sig/Reid Route PRN Reason Start Time Stop Time Status Last Admin Dose Admin Acetaminophen (Tylenol Tab) 650 mg Q6HP PRN PO HEADACHE or DISCOMFORT 08/28/20 01:55 Al Hydrox/Mg Hydrox/Simethicone (Mylanta) 30 ml Q4HP PRN PO HEARTBURN/INDIGESTION 08/28/20 01:55 Aripiprazole (AbiLIFY) 10 mg BID PO 08/28/20 09:00 08/30/20 09:32 Aripiprazole (AbiLIFY) 10 mg QHS PO 08/28/20 21:00 08/28/20 12:33 DC Aripiprazole (AbiLIFY) 20 mg DAILY PO 08/28/20 09:00 08/28/20 12:33 DC 08/28/20 09:18 Benztropine Mesylate (Cogentin) 3 mg BID PRN PO EXTRAPYRAMIDAL SYMPTOMS 08/28/20 03:45 Clonazepam (KlonoPIN) 0.5 mg BID PO 08/28/20 09:00 08/30/20 09:32 Ferrous Sulfate (Ferrous Sulfate) 325 mg DAILY PO 08/28/20 09:00 08/30/20 09:33 Fluoxetine HCl (PROzac) 60 mg DAILY PO 08/28/20 09:00 08/30/20 09:32 Home Med (Med Rec Complete!) ASDIRECTED XX 08/28/20 02:35 08/28/20 02:36 DC Lamotrigine (LaMICtal) 100 mg BID PO 08/28/20 09:00 08/30/20 09:32 Magnesium Hydroxide (Milk Of Magnesia) 30 ml DAILYPRN PRN PO CONSTIPATION 08/28/20 01:55 Metformin HCl (Glucophage) 500 mg BID@0800,1800 PO 08/28/20 08:00 08/30/20 07:33 Olanzapine (ZyPREXA) 5 mg BID PO 08/28/20 21:00 08/28/20 12:40 DC Olanzapine (ZyPREXA) 7.5 mg QHS PO 08/28/20 21:00 08/29/20 21:25 Omeprazole (PriLOSEC) 20 mg DAILY PO 08/28/20 09:00 08/30/20 09:33 Prazosin HCl (Minipress) 6 mg QHS PO 08/28/20 21:00 08/29/20 21:26 Topiramate (TopAMAX) 50 mg BID PO 08/28/20 09:00 08/30/20 09:33 Trazodone HCl (Desyrel) 50 mg QHSP PRN PO INSOMNIA 08/28/20 01:55 Allergies Coded Allergies: vancomycin (Verified Allergy, Unknown, red man's syndrome, 12/08/18) MARIA R CONTRERAS VOCAL MUSIC TEACHER Aug 30, 2020 10:15
[2020-08-30 11:56] VITALS: BP 132/70
[2020-08-30 11:58] VITALS: BP 132/70
[2020-08-30 16:11] VITALS: BP 123/77
[2020-08-30] MEDS: OLANZapine 2.5MG TABLET PO SCH (20:51)
[2020-08-30] MEDS: PRAZOSIN 1 MG CAP PO SCH (20:51)
[2020-08-31 06:21] VITALS: BP 118/63
[2020-08-31] MEDS: ARIPiprazole 10 MG TAB PO SCH (08:07)
[2020-08-31] MEDS: FLUoxetine 20 MG CAP PO SCH (08:07)
[2020-08-31] MEDS: metFORMIN (GLUCOPHAGE) 500MG TAB PO SCH ×2 (08:07→17:20)
[2020-08-31] MEDS: OMEPRAZOLE 20 MG CAP PO SCH (08:07)
[2020-08-31] MEDS: FERROUS SULFATE 325MG TAB PO SCH (08:07)
[2020-08-31] MEDS: lamoTRIgine 100MG TAB PO SCH ×2 (08:07→19:49)
[2020-08-31] MEDS: clonazePAM 0.5 MG TAB PO SCH ×2 (08:07→19:49)
[2020-08-31] MEDS: TOPIRAMATE (TopAMAX) 25 MG TAB PO SCH ×2 (08:07→19:49)
--- NOTE | 2020-08-31 13:03 | MHIPN ---
[facility] PROGRESS NOTE DATE: 08/31/2020 This is a video assessment. She is seen in the presence of staff. VITAL SIGNS: Blood pressure 118/63, pulse 81, temperature 97.2. CHIEF COMPLAINT: Says feels good. SUBJECTIVE: Seen for followup. Indicates has been feeling good but is vague on this, though says may have had a better night. Displays difficulties organizing her thoughts. Says appetite is good. Suggests has not been in touch with anyone outside the hospital. MENTAL STATUS EXAMINATION: Neat, cooperative. No agitation. Affect somewhat expansive and displays loose associations of thought, possibly some tangential thoughts as well, and a lot of her thoughts are not in context with what is being discussed. Denies any thoughts of harming herself or anyone else. No overt psychotic features elicited, though delusions are possible. No fluctuation of consciousness. Judgment and insight are compromised. ASSESSMENT: Schizoaffective disorder, bipolar type. Has difficulties with organizing her thoughts, tangential, and these may all signify aminata and psychosis. PLAN: Continue cross-tapering olanzapine with Abilikeviny. This has been started. We will continue with that. Also continue with current observation. She may need closer observation given some intrusiveness as well. Further recommendations will be made depending on the clinical picture.
[2020-08-31 16:03] VITALS: BP 114/67
[2020-08-31] MEDS: OLANZapine 2.5MG TABLET PO SCH (19:49)
[2020-08-31] MEDS: PRAZOSIN 1 MG CAP PO SCH (19:49)
[2020-09-01] MEDS: ACETAMINOPHEN TAB 650MG DOSE (2X325MG) PO PRN (05:32)
[2020-09-01 06:17] VITALS: BP 133/81
[2020-09-01] MEDS: metFORMIN (GLUCOPHAGE) 500MG TAB PO SCH ×2 (07:30→17:10)
[2020-09-01] MEDS: FLUoxetine 20 MG CAP PO SCH (08:59)
[2020-09-01] MEDS: TOPIRAMATE (TopAMAX) 25 MG TAB PO SCH ×2 (08:59→21:31)
[2020-09-01] MEDS: clonazePAM 0.5 MG TAB PO SCH ×2 (09:00→21:31)
[2020-09-01] MEDS: lamoTRIgine 100MG TAB PO SCH ×2 (09:00→21:31)
[2020-09-01] MEDS: OMEPRAZOLE 20 MG CAP PO SCH (09:00)
[2020-09-01] MEDS: FERROUS SULFATE 325MG TAB PO SCH (09:00)
[2020-09-01 16:18] VITALS: BP 125/74
[2020-09-01] MEDS: PRAZOSIN 1 MG CAP PO SCH (21:30)
[2020-09-01] MEDS: ARIPiprazole 10 MG TAB PO SCH (21:31)
[2020-09-01] MEDS: TRIAMCINOLONE ACET 0.1% CREAM 80 GM TOP PRN (22:28)
[2020-09-02 07:06] VITALS: BP 124/79
[2020-09-02] MEDS: metFORMIN (GLUCOPHAGE) 500MG TAB PO SCH ×2 (08:17→17:20)
[2020-09-02] MEDS: lamoTRIgine 100MG TAB PO SCH ×2 (08:41→20:36)
[2020-09-02] MEDS: TOPIRAMATE (TopAMAX) 25 MG TAB PO SCH ×2 (08:42→20:37)
[2020-09-02] MEDS: clonazePAM 0.5 MG TAB PO SCH ×2 (08:42→20:36)
[2020-09-02] MEDS: FERROUS SULFATE 325MG TAB PO SCH (08:42)
[2020-09-02] MEDS: OMEPRAZOLE 20 MG CAP PO SCH (08:43)
[2020-09-02] MEDS: FLUoxetine 20 MG CAP PO SCH (08:43)
[2020-09-02] MEDS: MAALOX 30 ML SUSP *UDC PO PRN (11:41)
--- NOTE | 2020-09-02 13:57 | MHIPNPDOC ---
[facility] Progress Note Progress Note DATE OF SERVICE: 09/02/20 HISTORY: Patient is a 40 -year-old , Domiciled, , female, who was brought to the ED by her after exhibiting psychotic symptoms and bizarre behaviors. Patient continued to be hypomanic, paranoid and delusional.She attempted to explain what brought her to the ED. She said that her children and were worried about her because she was " very incoherent", Said they had an intervention for her as a family yesterday but she continued to be incoherent. Says that she fell out off her bed at 3 o'clock in the morning and her brought her to the ED. PER ED NOTE; Pt brought to ED by spouse for MHE, pt has reportedly been decompensating for past month exhibiting psychotic sx's/bizarre behaviors. Pt and spouse are pleasant/cooperative, spouse brought pt to ED due to pt decompensating in past month. Pt has hx of Bipolar/Schizoaffective d/o, no prior psych admissions, is seen at [facility] and has been compliant with tx and medications. Per pt and spouse, pt has been decompensating for past month since medication changes, pt also had been drinking regularly but "cut way down" in past 2 weeks, denies any drug use. In past month pt has been more disorganized and confused at times, unable to follow conversations and then accusing others of changing the subject, making bizarre references per spouse "that have nothing to do with what is going on or what we were discussing". Pt also admits to feeling increasingly paranoid, feeling others are talking about her. PT reports AH but denies any commands, states the voices are getting more frequent. Pt also reports VH, seeing various animals in the home including a cat they do not own, another dog(they only have one) and a "stallion", pt has been seen by spouse "petting" animals that are not there. Pt and spouse provided several more examples of various hallucinations and bizarre behaviors from past month. Per spouse, earlier tonight pt called a friend out of state who is also a SW and spoke "gibberish" to her, friend spoke with spouse and suggested he bring pt to ED. Pt and spouse state that things are getting progressively worse, pt denies SI/HI but states "I can't take it anymore". PT is remains pleasant during interview, appears anxious and disheveled, denies drug use however admits to long hx of ETOH abuse, spouse states she "stopped a week ago because I wouldn't buy her anymore alcohol", however pt she had used ETOH in past 24 hours. VITAL SIGNS: See below. CURRENT MEDICATIONS: See below. MENTAL STATUS EXAMINATION: Patient is a 40 -year-old , Domiciled, , female, who was brought to the ED by her after exhibiting psychotic symptoms and bizarre behaviors. General Appearance: well-kempt, hospital scrubs/clothing Build: overweight Demeanor: preoccupied Eye Contact: average Activity: fair Behavior: cooperative Speech: conversant, tangential, circumstantial, hyperverbal at times Mood: hypomanic Affect: disorganized, euphoric Thought Process: flight of ideas, disorganized and scattered, loose associations Thought Content (Delusions): denies SI, HI, AVH Thought Content (Other): mildly grandiose Thought Content (Aggressive): none reported Perception (Hallucinations): none reported Perception (Other): none reported Cognition (Impairment of): attention/concentration Cognition(Intelligence Est.): borderline Oriented: Awake, Alert, Oriented times three Insight: poor Judgment: Poor Psychosis: Denies DIAGNOSES: Schizoaffective, Bipolar type. ASSESSMENT: Seen today, continues to be disorganized and scattered, loose associations, and hypomanic. Patient's orientation is compromised. She salvatore eves that her children are running in the hospital and are loose running amuck. She reports that she feels stressed and depressed. She is tangential and circumstantial, has nonsensical statements in her interview. She believes that her rings and glasses were stolen, that she fell. Much of her conversation was quite disorganized. Patient is not stable and continues to have poor insight and judgment. MANAGEMENT PLAN: Continue all medications. Continue to taper Abilify and titrate Olanzapine. Olanzapine 5 mg in AM. Abilify in AM discontinued. TIME SPENT: 25 minutes. Vital Signs Vital Signs Date Time Temp Pulse Resp B/P (MAP) Pulse Ox O2 Delivery O2 Flow Rate FiO2 09/02/20 07:06 97.3 104 20 124/79 (94) 97 Room Air Current Medications Current Medications Medications (Trade) Dose Ordered Sig/Reid Route PRN Reason Start Time Stop Time Status Last Admin Dose Admin Acetaminophen (Tylenol Tab) 650 mg Q6HP PRN PO HEADACHE or DISCOMFORT 08/28/20 01:55 09/01/20 05:32 Al Hydrox/Mg Hydrox/Simethicone (Mylanta) 30 ml Q4HP PRN PO HEARTBURN/INDIGESTION 08/28/20 01:55 09/02/20 11:41 Aripiprazole (AbiLIFY) 5 mg QAM PO 09/01/20 09:00 09/02/20 08:43 Aripiprazole (AbiLIFY) 10 mg BID PO 08/28/20 09:00 08/31/20 12:00 DC 08/31/20 08:07 Aripiprazole (AbiLIFY) 10 mg QHS PO 08/28/20 21:00 08/28/20 12:33 DC Aripiprazole (AbiLIFY) 10 mg QHS PO 09/01/20 21:00 09/01/20 21:31 Aripiprazole (AbiLIFY) 20 mg DAILY PO 08/28/20 09:00 08/28/20 12:33 DC 08/28/20 09:18 Benztropine Mesylate (Cogentin) 3 mg BID PRN PO EXTRAPYRAMIDAL SYMPTOMS 08/28/20 03:45 Clonazepam (KlonoPIN) 0.5 mg BID PO 08/28/20 09:00 09/02/20 08:42 Ferrous Sulfate (Ferrous Sulfate) 325 mg DAILY PO 08/28/20 09:00 09/02/20 08:42 Fluoxetine HCl (PROzac) 60 mg DAILY PO 08/28/20 09:00 09/02/20 08:43 Home Med (Med Rec Complete!) ASDIRECTED XX 08/28/20 02:35 08/28/20 02:36 DC Lamotrigine (LaMICtal) 100 mg BID PO 08/28/20 09:00 09/02/20 08:41 Magnesium Hydroxide (Milk Of Magnesia) 30 ml DAILYPRN PRN PO CONSTIPATION 08/28/20 01:55 Metformin HCl (Glucophage) 500 mg BID@0800,1800 PO 08/28/20 08:00 09/02/20 08:17 Olanzapine (ZyPREXA) 5 mg BID PO 08/28/20 21:00 08/28/20 12:40 DC Olanzapine (ZyPREXA) 7.5 mg QHS PO 08/28/20 21:00 09/01/20 09:00 DC 08/31/20 19:49 Olanzapine (ZyPREXA) 10 mg QHS PO 09/02/20 21:00 Omeprazole (PriLOSEC) 20 mg DAILY PO 08/28/20 09:00 09/02/20 08:43 Prazosin HCl (Minipress) 6 mg QHS PO 08/28/20 21:00 09/01/20 21:30 Topiramate (TopAMAX) 50 mg BID PO 08/28/20 09:00 09/02/20 08:42 Trazodone HCl (Desyrel) 50 mg QHSP PRN PO INSOMNIA 08/28/20 01:55 Triamcinolone Acetonide (Kenalog 0.1% Cream) APPLY TO MEDIAL THIGH AREA BIDP PRN TOP irritation 09/01/20 22:10 09/01/20 22:28 Allergies Coded Allergies: vancomycin (Verified Allergy, Unknown, red man's syndrome, 12/08/18) MARIA R CONTRERAS DIRECTOR OF DIGITAL TECHNOLOGY September 02, 2020 12:09
[2020-09-02] MEDS: TRIAMCINOLONE ACET 0.1% CREAM 80 GM TOP PRN (14:23)
[2020-09-02 18:00] VITALS: BP 119/78
[2020-09-02] MEDS ORDERED: OLANZapine ORAL DISINTEGRATING TAB 5MG PO PRN (18:40)
[2020-09-02] MEDS: ARIPiprazole 10 MG TAB PO SCH (20:36)
[2020-09-02] MEDS: hydrOXYzine 50 MG TAB PO SCH (20:36)
[2020-09-02] MEDS: PRAZOSIN 1 MG CAP PO SCH (20:37)
[2020-09-02] MEDS ORDERED: OLANZapine 10 MG TAB PO SCH (21:00)
--- NOTE | 2020-09-02 21:11 | MHIPN ---
[facility] PROGRESS NOTE DATE: 09/01/2020 VITAL SIGNS: Blood pressure 125/74, pulse 97, temperature 98. This is a video assessment, she is seen in the presence of staff. CHIEF COMPLAINT: Says is doing well. SUBJECTIVE: She is seen for followup. Indicates feels good, but that she feels bored. Says her mind races quite quickly, but she slept a bit better. MENTAL STATUS EXAMINATION: Neat, cooperative, no agitation, no psychomotor retardation. She displays a less expansive affect, it is overall somewhat narrower than yesterday, and she is more coherent. Denies any thoughts of harming herself or anyone else. Cognition grossly intact. Judgment and insight remain compromised, though somewhat improved. ASSESSMENT: Schizoaffective disorder, bipolar type. Currently less overtly manic. PLAN: She is to continue with the cross-tapering of the olanzapine and Abilify. She is to be encouraged to participate in activities as tolerated. She will be seen by the assigned clinician tomorrow.
[2020-09-03] MEDS: hydrOXYzine 50 MG TAB PO SCH ×3 (04:52→11:07)
[2020-09-03 06:39] VITALS: BP 115/54
[2020-09-03] MEDS: metFORMIN (GLUCOPHAGE) 500MG TAB PO SCH ×2 (08:35→17:31)
[2020-09-03] MEDS: clonazePAM 0.5 MG TAB PO SCH ×2 (08:46→21:49)
[2020-09-03] MEDS: lamoTRIgine 100MG TAB PO SCH ×2 (08:46→21:49)
[2020-09-03] MEDS: FERROUS SULFATE 325MG TAB PO SCH (08:46)
[2020-09-03] MEDS: TOPIRAMATE (TopAMAX) 25 MG TAB PO SCH ×2 (08:47→21:48)
[2020-09-03] MEDS: FLUoxetine 20 MG CAP PO SCH (08:47)
[2020-09-03] MEDS: OMEPRAZOLE 20 MG CAP PO SCH (08:47)
[2020-09-03] MEDS ORDERED: OLANZapine 5 MG TAB PO SCH (09:00)
--- NOTE | 2020-09-03 12:13 | MHIPNPDOC ---
[facility] Progress Note Progress Note DATE OF SERVICE: 09/03/20 HISTORY: Patient is a 40 -year-old , Domiciled, , female, who was brought to the ED by her after exhibiting psychotic symptoms and bizarre behaviors. Patient continued to be hypomanic, paranoid and delusional.She attempted to explain what brought her to the ED. She said that her children and were worried about her because she was " very incoherent", Said they had an intervention for her as a family yesterday but she continued to be incoherent. Says that she fell out off her bed at 3 o'clock in the morning and her brought her to the ED. PER ED NOTE; Pt brought to ED by spouse for MHE, pt has reportedly been decompensating for past month exhibiting psychotic sx's/bizarre behaviors. Pt and spouse are pleasant/cooperative, spouse brought pt to ED due to pt decompensating in past month. Pt has hx of Bipolar/Schizoaffective d/o, no prior psych admissions, is seen at [facility] and has been compliant with tx and medications. Per pt and spouse, pt has been decompensating for past month since medication changes, pt also had been drinking regularly but "cut way down" in past 2 weeks, denies any drug use. In past month pt has been more disorganized and confused at times, unable to follow conversations and then accusing others of changing the subject, making bizarre references per spouse "that have nothing to do with what is going on or what we were discussing". Pt also admits to feeling increasingly paranoid, feeling others are talking about her. PT reports AH but denies any commands, states the voices are getting more frequent. Pt also reports VH, seeing various animals in the home including a cat they do not own, another dog(they only have one) and a "stallion", pt has been seen by spouse "petting" animals that are not there. Pt and spouse provided several more examples of various hallucinations and bizarre behaviors from past month. Per spouse, earlier tonight pt called a friend out of state who is also a SW and spoke "gibberish" to her, friend spoke with spouse and suggested he bring pt to ED. Pt and spouse state that things are getting progressively worse, pt denies SI/HI but states "I can't take it anymore". PT is remains pleasant during interview, appears anxious and disheveled, denies drug use however admits to long hx of ETOH abuse, spouse states she "stopped a week ago because I wouldn't buy her anymore alcohol", however pt she had used ETOH in past 24 hours. VITAL SIGNS: See below. CURRENT MEDICATIONS: See below. MENTAL STATUS EXAMINATION: Patient is a 40 -year-old , Domiciled, , female, who was brought to the ED by her after exhibiting psychotic symptoms and bizarre behaviors. General Appearance: well-kempt, hospital scrubs/clothing Build: overweight Demeanor: preoccupied Eye Contact: average Activity: fair Behavior: cooperative Speech: conversant, tangential, circumstantial, hyperverbal at times Mood: hypomanic Affect: disorganized, euphoric Thought Process: flight of ideas, disorganized and scattered, loose associations Thought Content (Delusions): denies SI, HI, AVH, is quite delusional Thought Content (Other): loose associations, delusional Thought Content (Aggressive): none reported Perception (Hallucinations): none reported Perception (Other): none reported Cognition (Impairment of): attention/concentration Cognition(Intelligence Est.): borderline Oriented: Awake, Alert, Oriented times three Insight: poor Judgment: Poor Psychosis: Denies DIAGNOSES: Schizoaffective, Bipolar type. ASSESSMENT: Patient reports that she is very sleepy but is observed to be very euphoric, bright in mood and affect. Reports that she is admitted because she has not self control of herself and of her children. She then talks about how she magically turned herself into a cat. She states "I am having hallucinations that come and go. When that cat was on my lap, I had to then put the cat back. Before I met you I was plain flippin' nuts." Patient is requesting her phone because she reports that other peers are unstable and that she doesn't want them in her room. Patient continues to exhibit euphoric, she is hypomanic, often times confused as to where her room is. She reports that medications are making her sleepy, but again is not observed with drowsiness or with any sedation. Patient is observed with internal stimuli by staff and has increased anxiety and auditory hallucinations later in the shift. MANAGEMENT PLAN: Continue all medications. Patient has had no improvement with tapering Abilify and titration of Olanzapine. Will consider Haloperidol for an antipsychotic. TIME SPENT: 25 minutes. Vital Signs Vital Signs Date Time Temp Pulse Resp B/P (MAP) Pulse Ox O2 Delivery O2 Flow Rate FiO2 09/03/20 08:10 Room Air 09/03/20 06:39 97.3 118 18 115/54 (74) 97 Current Medications Current Medications Medications (Trade) Dose Ordered Sig/Reid Route PRN Reason Start Time Stop Time Status Last Admin Dose Admin Acetaminophen (Tylenol Tab) 650 mg Q6HP PRN PO HEADACHE or DISCOMFORT 08/28/20 01:55 09/01/20 05:32 Al Hydrox/Mg Hydrox/Simethicone (Mylanta) 30 ml Q4HP PRN PO HEARTBURN/INDIGESTION 08/28/20 01:55 09/02/20 11:41 Aripiprazole (AbiLIFY) 5 mg QAM PO 09/01/20 09:00 09/02/20 13:50 DC 09/02/20 08:43 Aripiprazole (AbiLIFY) 10 mg BID PO 08/28/20 09:00 08/31/20 12:00 DC 08/31/20 08:07 Aripiprazole (AbiLIFY) 10 mg QHS PO 08/28/20 21:00 08/28/20 12:33 DC Aripiprazole (AbiLIFY) 10 mg QHS PO 09/01/20 21:00 09/02/20 20:36 Aripiprazole (AbiLIFY) 20 mg DAILY PO 08/28/20 09:00 08/28/20 12:33 DC 08/28/20 09:18 Benztropine Mesylate (Cogentin) 3 mg BID PRN PO EXTRAPYRAMIDAL SYMPTOMS 08/28/20 03:45 Clonazepam (KlonoPIN) 0.5 mg BID PO 08/28/20 09:00 09/02/20 20:36 Ferrous Sulfate (Ferrous Sulfate) 325 mg DAILY PO 08/28/20 09:00 09/02/20 08:42 Fluoxetine HCl (PROzac) 60 mg DAILY PO 08/28/20 09:00 09/02/20 08:43 Home Med (Med Rec Complete!) ASDIRECTED XX 08/28/20 02:35 08/28/20 02:36 DC Hydroxyzine HCl (Atarax) 50 mg Q6H PO 09/02/20 18:00 09/03/20 04:52 Lamotrigine (LaMICtal) 100 mg BID PO 08/28/20 09:00 09/02/20 20:36 Magnesium Hydroxide (Milk Of Magnesia) 30 ml DAILYPRN PRN PO CONSTIPATION 08/28/20 01:55 Metformin HCl (Glucophage) 500 mg BID@0800,1800 PO 08/28/20 08:00 09/02/20 17:20 Olanzapine (ZyPREXA ZYDIS) 5 mg TIDP PRN PO psychosis 09/02/20 18:40 09/03/20 02:26 Olanzapine (ZyPREXA) 5 mg BID PO 08/28/20 21:00 08/28/20 12:40 DC Olanzapine (ZyPREXA) 5 mg QAM PO 09/03/20 09:00 Olanzapine (ZyPREXA) 7.5 mg QHS PO 08/28/20 21:00 09/01/20 09:00 DC 08/31/20 19:49 Olanzapine (ZyPREXA) 10 mg QHS PO 09/02/20 21:00 09/02/20 20:37 Omeprazole (PriLOSEC) 20 mg DAILY PO 08/28/20 09:00 09/02/20 08:43 Prazosin HCl (Minipress) 6 mg QHS PO 08/28/20 21:00 09/02/20 20:37 Topiramate (TopAMAX) 50 mg BID PO 08/28/20 09:00 09/02/20 20:37 Trazodone HCl (Desyrel) 50 mg QHSP PRN PO INSOMNIA 08/28/20 01:55 Triamcinolone Acetonide (Kenalog 0.1% Cream) APPLY TO MEDIAL THIGH AREA BIDP PRN TOP irritation 09/01/20 22:10 09/02/20 14:23 Allergies Coded Allergies: vancomycin (Verified Allergy, Unknown, red man's syndrome, 12/08/18) MARIA R CONTRERAS NP September 03, 2020 08:23
[2020-09-03 18:00] VITALS: BP 126/70
[2020-09-03] MEDS: PRAZOSIN 1 MG CAP PO SCH (21:50)
[2020-09-04] MEDS: traZODone 50 MG TAB PO PRN ×2 (00:18→20:43)
[2020-09-04 07:28] VITALS: BP 137/83
[2020-09-04] MEDS: lamoTRIgine 100MG TAB PO SCH ×2 (08:40→20:42)
[2020-09-04] MEDS: TOPIRAMATE (TopAMAX) 25 MG TAB PO SCH ×2 (08:41→20:41)
[2020-09-04] MEDS: FERROUS SULFATE 325MG TAB PO SCH (08:41)
[2020-09-04] MEDS: OMEPRAZOLE 20 MG CAP PO SCH (08:42)
[2020-09-04] MEDS: metFORMIN (GLUCOPHAGE) 500MG TAB PO SCH ×2 (08:42→17:05)
[2020-09-04] MEDS: clonazePAM 0.5 MG TAB PO SCH ×2 (08:42→20:42)
[2020-09-04] MEDS: FLUoxetine 20 MG CAP PO SCH (08:42)
[2020-09-04] MEDS: haloperidoL 5 MG TAB PO SCH ×2 (08:42→20:41)
--- NOTE | 2020-09-04 15:00 | MHIPNPDOC ---
[facility] Progress Note Progress Note DATE OF SERVICE: 09/04/20 HISTORY: Patient is a 40 -year-old , Domiciled, , female, who was brought to the ED by her after exhibiting psychotic symptoms and bizarre behaviors. Patient continued to be hypomanic, paranoid and delusional.She attempted to explain what brought her to the ED. She said that her children and were worried about her because she was " very incoherent", Said they had an intervention for her as a family yesterday but she continued to be incoherent. Says that she fell out off her bed at 3 o'clock in the morning and her brought her to the ED. PER ED NOTE; Pt brought to ED by spouse for MHE, pt has reportedly been decompensating for past month exhibiting psychotic sx's/bizarre behaviors. Pt and spouse are pleasant/cooperative, spouse brought pt to ED due to pt decompensating in past month. Pt has hx of Bipolar/Schizoaffective d/o, no prior psych admissions, is seen at [facility] and has been compliant with tx and medications. Per pt and spouse, pt has been decompensating for past month since medication changes, pt also had been drinking regularly but "cut way down" in past 2 weeks, denies any drug use. In past month pt has been more disorganized and confused at times, unable to follow conversations and then accusing others of changing the subject, making bizarre references per spouse "that have nothing to do with what is going on or what we were discussing". Pt also admits to feeling increasingly paranoid, feeling others are talking about her. PT reports AH but denies any commands, states the voices are getting more frequent. Pt also reports VH, seeing various animals in the home including a cat they do not own, another dog(they only have one) and a "stallion", pt has been seen by spouse "petting" animals that are not there. Pt and spouse provided several more examples of various hallucinations and bizarre behaviors from past month. Per spouse, earlier tonight pt called a friend out of state who is also a SW and spoke "gibberish" to her, friend spoke with spouse and suggested he bring pt to ED. Pt and spouse state that things are getting progressively worse, pt denies SI/HI but states "I can't take it anymore". PT is remains pleasant during interview, appears anxious and disheveled, denies drug use however admits to long hx of ETOH abuse, spouse states she "stopped a week ago because I wouldn't buy her anymore alcohol", however pt she had used ETOH in past 24 hours. VITAL SIGNS: See below. CURRENT MEDICATIONS: See below. MENTAL STATUS EXAMINATION: Patient is a 40 -year-old , Domiciled, , female, who was brought to the ED by her after exhibiting psychotic symptoms and bizarre behaviors. General Appearance: well-kempt, hospital scrubs/clothing Build: overweight Demeanor: preoccupied Eye Contact: average Activity: fair Behavior: cooperative Speech: conversant, normal rate tone and volume Mood: labile (mildly) Affect: anxious Thought Process: mild flight of ideas, loose association but has improved Thought Content (Delusions): denies SI, HI, AVH, is mildly delusional Thought Content (Other): loose associations, delusional Thought Content (Aggressive): none reported Perception (Hallucinations): none reported Perception (Other): none reported Cognition (Impairment of): improving Cognition(Intelligence Est.): borderline Oriented: Awake, Alert, Oriented times three Insight: improving Judgment: improving Psychosis: Denies DIAGNOSES: Schizoaffective, Bipolar type. ASSESSMENT: Patient is reporting that she is "Overall I am agitated. I was at the commissary and was not mentally well. Everything makes me want to cry, I t hink I can learn to be functional and be able to leave here. I figure I will play along, I don't want to stay here, I loose associations, they have the kids, it changes everyday. I want to sit with family members and be depressed, I don't want to hear about depression, I don't want to eat food. The children were never under the floor boards, they were under the box." Later in the interview, patient becomes more oriented and asks why she was admitted to the hospital. Reviewed with her the circumstances and she reports that she remembers it. Patient is less disorganized at the end of the interview, is agreeable to her medication changes. MANAGEMENT PLAN: Continue all medications. Haloperidol 5 mg BID and Haldol 5 mg [id number] for anxiety/agitation. Will consider Haldol Decanoate as patient is considering it. TIME SPENT: 25 minutes. Vital Signs Vital Signs Date Time Temp Pulse Resp B/P (MAP) Pulse Ox O2 Delivery O2 Flow Rate FiO2 09/04/20 07:46 Room Air 09/04/20 07:28 97.8 95 20 137/83 (101) 94 Current Medications Current Medications Medications (Trade) Dose Ordered Sig/Reid Route PRN Reason Start Time Stop Time Status Last Admin Dose Admin Acetaminophen (Tylenol Tab) 650 mg Q6HP PRN PO HEADACHE or DISCOMFORT 08/28/20 01:55 09/01/20 05:32 Al Hydrox/Mg Hydrox/Simethicone (Mylanta) 30 ml Q4HP PRN PO HEARTBURN/INDIGESTION 08/28/20 01:55 09/02/20 11:41 Aripiprazole (AbiLIFY) 5 mg QAM PO 09/01/20 09:00 09/02/20 13:50 DC 09/02/20 08:43 Aripiprazole (AbiLIFY) 10 mg BID PO 08/28/20 09:00 08/31/20 12:00 DC 08/31/20 08:07 Aripiprazole (AbiLIFY) 10 mg QHS PO 08/28/20 21:00 08/28/20 12:33 DC Aripiprazole (AbiLIFY) 10 mg QHS PO 09/01/20 21:00 09/03/20 12:15 DC 09/02/20 20:36 Aripiprazole (AbiLIFY) 20 mg DAILY PO 08/28/20 09:00 08/28/20 12:33 DC 08/28/20 09:18 Benztropine Mesylate (Cogentin) 3 mg BID PRN PO EXTRAPYRAMIDAL SYMPTOMS 08/28/20 03:45 Clonazepam (KlonoPIN) 0.5 mg BID PO 08/28/20 09:00 09/04/20 08:42 Ferrous Sulfate (Ferrous Sulfate) 325 mg DAILY PO 08/28/20 09:00 09/04/20 08:41 Fluoxetine HCl (PROzac) 60 mg DAILY PO 08/28/20 09:00 09/04/20 08:42 Haloperidol (Haldol) 5 mg BID PO 09/04/20 09:00 09/04/20 08:42 Haloperidol (Haldol) 5 mg Q6HP PRN PO AGITATION 09/04/20 13:25 Home Med (Med Rec Complete!) ASDIRECTED XX 08/28/20 02:35 08/28/20 02:36 DC Hydroxyzine HCl (Atarax) 50 mg Q6H PO 09/02/20 18:00 09/03/20 12:16 DC 09/03/20 11:07 Lamotrigine (LaMICtal) 100 mg BID PO 08/28/20 09:00 09/04/20 08:40 Magnesium Hydroxide (Milk Of Magnesia) 30 ml DAILYPRN PRN PO CONSTIPATION 08/28/20 01:55 Metformin HCl (Glucophage) 500 mg BID@0800,1800 PO 08/28/20 08:00 09/04/20 08:42 Olanzapine (ZyPREXA ZYDIS) 5 mg TIDP PRN PO psychosis 09/02/20 18:40 09/03/20 12:15 DC 09/03/20 02:26 Olanzapine (ZyPREXA) 5 mg BID PO 08/28/20 21:00 08/28/20 12:40 DC Olanzapine (ZyPREXA) 5 mg QAM PO 09/03/20 09:00 09/03/20 12:15 DC 09/03/20 08:47 Olanzapine (ZyPREXA) 7.5 mg QHS PO 08/28/20 21:00 09/01/20 09:00 DC 08/31/20 19:49 Olanzapine (ZyPREXA) 10 mg QHS PO 09/02/20 21:00 09/03/20 14:26 DC 09/02/20 20:37 Omeprazole (PriLOSEC) 20 mg DAILY PO 08/28/20 09:00 09/04/20 08:42 Prazosin HCl (Minipress) 6 mg QHS PO 08/28/20 21:00 09/03/20 21:50 Topiramate (TopAMAX) 50 mg BID PO 08/28/20 09:00 09/04/20 08:41 Trazodone HCl (Desyrel) 50 mg QHSP PRN PO INSOMNIA 08/28/20 01:55 09/04/20 00:18 Triamcinolone Acetonide (Kenalog 0.1% Cream) APPLY TO MEDIAL THIGH AREA BIDP PRN TOP irritation 09/01/20 22:10 09/02/20 14:23 Allergies Coded Allergies: vancomycin (Verified Allergy, Unknown, red man's syndrome, 12/08/18) MARIA R CONTRERAS NP September 04, 2020 14:17
[2020-09-04] MEDS: haloperidoL 5 MG TAB PO PRN ×2 (15:39→23:40)
[2020-09-04 17:38] VITALS: BP 121/67
[2020-09-04] MEDS: PRAZOSIN 1 MG CAP PO SCH (20:43)
[2020-09-05 06:26] VITALS: BP 126/72
[2020-09-05] MEDS: haloperidoL 5 MG TAB PO SCH ×2 (08:32→20:44)
[2020-09-05] MEDS: clonazePAM 0.5 MG TAB PO SCH ×2 (08:32→20:44)
[2020-09-05] MEDS: FERROUS SULFATE 325MG TAB PO SCH (08:32)
[2020-09-05] MEDS: metFORMIN (GLUCOPHAGE) 500MG TAB PO SCH ×2 (08:32→17:31)
[2020-09-05] MEDS: lamoTRIgine 100MG TAB PO SCH ×2 (08:32→20:43)
[2020-09-05] MEDS: TOPIRAMATE (TopAMAX) 25 MG TAB PO SCH ×2 (08:33→20:44)
[2020-09-05] MEDS: FLUoxetine 20 MG CAP PO SCH (08:33)
[2020-09-05] MEDS: OMEPRAZOLE 20 MG CAP PO SCH (08:33)
[2020-09-05] MEDS: ACETAMINOPHEN TAB 650MG DOSE (2X325MG) PO PRN ×2 (09:36→18:10)
--- NOTE | 2020-09-05 13:27 | MHIPNPDOC ---
[facility] Progress Note Progress Note DATE OF SERVICE: 09/05/20 HISTORY: Patient is a 40 -year-old , Domiciled, , female, who was brought to the ED by her after exhibiting psychotic symptoms and bizarre behaviors. Patient continued to be hypomanic, paranoid and delusional.She attempted to explain what brought her to the ED. She said that her children and were worried about her because she was " very incoherent", Said they had an intervention for her as a family yesterday but she continued to be incoherent. Says that she fell out off her bed at 3 o'clock in the morning and her brought her to the ED. PER ED NOTE; Pt brought to ED by spouse for MHE, pt has reportedly been decompensating for past month exhibiting psychotic sx's/bizarre behaviors. Pt and spouse are pleasant/cooperative, spouse brought pt to ED due to pt decompensating in past month. Pt has hx of Bipolar/Schizoaffective d/o, no prior psych admissions, is seen at [facility] and has been compliant with tx and medications. Per pt and spouse, pt has been decompensating for past month since medication changes, pt also had been drinking regularly but "cut way down" in past 2 weeks, denies any drug use. In past month pt has been more disorganized and confused at times, unable to follow conversations and then accusing others of changing the subject, making bizarre references per spouse "that have nothing to do with what is going on or what we were discussing". Pt also admits to feeling increasingly paranoid, feeling others are talking about her. PT reports AH but denies any commands, states the voices are getting more frequent. Pt also reports VH, seeing various animals in the home including a cat they do not own, another dog(they only have one) and a "stallion", pt has been seen by spouse "petting" animals that are not there. Pt and spouse provided several more examples of various hallucinations and bizarre behaviors from past month. Per spouse, earlier tonight pt called a friend out of state who is also a SW and spoke "gibberish" to her, friend spoke with spouse and suggested he bring pt to ED. Pt and spouse state that things are getting progressively worse, pt denies SI/HI but states "I can't take it anymore". PT is remains pleasant during interview, appears anxious and disheveled, denies drug use however admits to long hx of ETOH abuse, spouse states she "stopped a week ago because I wouldn't buy her anymore alcohol", however pt she had used ETOH in past 24 hours. VITAL SIGNS: See below. CURRENT MEDICATIONS: See below. MENTAL STATUS EXAMINATION: Patient is a 40 -year-old , Domiciled, , female, who was brought to the ED by her after exhibiting psychotic symptoms and bizarre behaviors. General Appearance: well-kempt, hospital scrubs/clothing Build: overweight Demeanor: Average Eye Contact: average Activity: fair Behavior: cooperative Speech: conversant, normal rate tone and volume Mood: labile (mildly) Affect: anxious Thought Process: Linear, Thought Content (Delusions): denies SI, HI, AVH, is mildly delusional Thought Content (Other):Mildly delusional Thought Content (Aggressive): none reported Perception (Hallucinations): none reported Perception (Other): none reported Cognition (Impairment of): improving Cognition(Intelligence Est.): borderline Oriented: Awake, Alert, Oriented times three Insight: improving Judgment: improving Psychosis: Denies DIAGNOSES: Schizoaffective, Bipolar type. ASSESSMENT: Patient is interviewed today. She is dressed in hospital clothing,well kempt. Her thought process is mildly circumstantial. She is pleasant, continues to have altered thoughts and at times having nonsensical talk about police coming into the unit and cuffing people, says that a peer's spouse came to visit last night and they moved beds around in the unit so that the couple could spend the night together and that the couple played a game of cards until 2 o'clock in the morning. She describes a different incident where peers were ordered to lay on the floor. Says " everyone was on the floor, they were being dragged around kicking and screaming". She states that her mood is " very good" but that she doesn't appreciate being " locked in here". States that she realizes that she has to get better before she can go home. She states that some things that she was told she did on the day of admission "are very embarrassing". Reassurance was given and provider discussed her Bipolar diagnosis mood swings that come with it. Discussed that stressors like sleep depravation or failing to take medications can trigger manic or a hypomanic episode. She admits that she sometimes fails to take her prescription medication. States that she has attended group sessions today and learned a lot about how to take care of herself. She ruminates about how it will be when she finally gets to go home, says her and kids will probably pick her up and they will all be happy to see her again. Denies SI. Haldol dose will be increased tomorrow. Plan for discharge next week. MANAGEMENT PLAN: Continue all medications. Haloperidol 5 mg BID and Haldol 5 mg [id number] for anxiety/agitation. Will consider Haldol Decanoate as patient is considering it. TIME SPENT: 25 minutes. Vital Signs Vital Signs Date Time Temp Pulse Resp B/P (MAP) Pulse Ox O2 Delivery O2 Flow Rate FiO2 09/05/20 06:26 97.6 115 16 126/72 (90) 96 Room Air Current Medications Current Medications Medications (Trade) Dose Ordered Sig/Reid Route PRN Reason Start Time Stop Time Status Last Admin Dose Admin Acetaminophen (Tylenol Tab) 650 mg Q6HP PRN PO HEADACHE or DISCOMFORT 08/28/20 01:55 09/05/20 09:36 Al Hydrox/Mg Hydrox/Simethicone (Mylanta) 30 ml Q4HP PRN PO HEARTBURN/INDIGESTION 08/28/20 01:55 09/02/20 11:41 Aripiprazole (AbiLIFY) 5 mg QAM PO 09/01/20 09:00 09/02/20 13:50 DC 09/02/20 08:43 Aripiprazole (AbiLIFY) 10 mg BID PO 08/28/20 09:00 08/31/20 12:00 DC 08/31/20 08:07 Aripiprazole (AbiLIFY) 10 mg QHS PO 08/28/20 21:00 08/28/20 12:33 DC Aripiprazole (AbiLIFY) 10 mg QHS PO 09/01/20 21:00 09/03/20 12:15 DC 09/02/20 20:36 Aripiprazole (AbiLIFY) 20 mg DAILY PO 08/28/20 09:00 08/28/20 12:33 DC 08/28/20 09:18 Benztropine Mesylate (Cogentin) 3 mg BID PRN PO EXTRAPYRAMIDAL SYMPTOMS 08/28/20 03:45 Clonazepam (KlonoPIN) 0.5 mg BID PO 08/28/20 09:00 09/05/20 08:32 Ferrous Sulfate (Ferrous Sulfate) 325 mg DAILY PO 08/28/20 09:00 09/05/20 08:32 Fluoxetine HCl (PROzac) 60 mg DAILY PO 08/28/20 09:00 09/05/20 08:33 Haloperidol (Haldol) 5 mg BID PO 09/04/20 09:00 09/05/20 08:32 Haloperidol (Haldol) 5 mg Q6HP PRN PO AGITATION 09/04/20 13:25 09/04/20 23:40 Home Med (Med Rec Complete!) ASDIRECTED XX 08/28/20 02:35 08/28/20 02:36 DC Hydroxyzine HCl (Atarax) 50 mg Q6H PO 09/02/20 18:00 09/03/20 12:16 DC 09/03/20 11:07 Lamotrigine (LaMICtal) 100 mg BID PO 08/28/20 09:00 09/05/20 08:32 Magnesium Hydroxide (Milk Of Magnesia) 30 ml DAILYPRN PRN PO CONSTIPATION 08/28/20 01:55 Metformin HCl (Glucophage) 500 mg BID@0800,1800 PO 08/28/20 08:00 09/05/20 08:32 Olanzapine (ZyPREXA ZYDIS) 5 mg TIDP PRN PO psychosis 09/02/20 18:40 09/03/20 12:15 DC 09/03/20 02:26 Olanzapine (ZyPREXA) 5 mg BID PO 08/28/20 21:00 08/28/20 12:40 DC Olanzapine (ZyPREXA) 5 mg QAM PO 09/03/20 09:00 09/03/20 12:15 DC 09/03/20 08:47 Olanzapine (ZyPREXA) 7.5 mg QHS PO 08/28/20 21:00 09/01/20 09:00 DC 08/31/20 19:49 Olanzapine (ZyPREXA) 10 mg QHS PO 09/02/20 21:00 09/03/20 14:26 DC 09/02/20 20:37 Omeprazole (PriLOSEC) 20 mg DAILY PO 08/28/20 09:00 09/05/20 08:33 Prazosin HCl (Minipress) 6 mg QHS PO 08/28/20 21:00 09/04/20 20:43 Topiramate (TopAMAX) 50 mg BID PO 08/28/20 09:00 09/05/20 08:33 Trazodone HCl (Desyrel) 50 mg QHSP PRN PO INSOMNIA 08/28/20 01:55 09/04/20 20:43 Triamcinolone Acetonide (Kenalog 0.1% Cream) APPLY TO MEDIAL THIGH AREA BIDP PRN TOP irritation 09/01/20 22:10 09/02/20 14:23 Allergies Coded Allergies: vancomycin (Verified Allergy, Unknown, red man's syndrome, 12/08/18) MARIA R CONTRERAS NP September 05, 2020 11:37
[2020-09-05 18:56] VITALS: BP 111/76
[2020-09-05] MEDS: PRAZOSIN 1 MG CAP PO SCH (20:44)
[2020-09-06 06:09] VITALS: BP 97/57
[2020-09-06] MEDS: FERROUS SULFATE 325MG TAB PO SCH (08:07)
[2020-09-06] MEDS: lamoTRIgine 100MG TAB PO SCH ×2 (08:07→20:12)
[2020-09-06] MEDS: clonazePAM 0.5 MG TAB PO SCH ×2 (08:08→20:12)
[2020-09-06] MEDS: haloperidoL 5 MG TAB PO SCH (08:08)
[2020-09-06] MEDS: metFORMIN (GLUCOPHAGE) 500MG TAB PO SCH ×2 (08:08→17:23)
[2020-09-06] MEDS: TOPIRAMATE (TopAMAX) 25 MG TAB PO SCH ×2 (08:08→20:12)
[2020-09-06] MEDS: FLUoxetine 20 MG CAP PO SCH (08:09)
[2020-09-06] MEDS: OMEPRAZOLE 20 MG CAP PO SCH (08:09)
--- NOTE | 2020-09-06 11:13 | MHIPNPDOC ---
[facility] Progress Note Progress Note DATE OF SERVICE: 09/06/20 HISTORY: Patient is a 40 -year-old , Domiciled, , female, who was brought to the ED by her after exhibiting psychotic symptoms and bizarre behaviors. Patient continued to be hypomanic, paranoid and delusional.She attempted to explain what brought her to the ED. She said that her children and were worried about her because she was " very incoherent", Said they had an intervention for her as a family yesterday but she continued to be incoherent. Says that she fell out off her bed at 3 o'clock in the morning and her brought her to the ED. PER ED NOTE; Pt brought to ED by spouse for MHE, pt has reportedly been decompensating for past month exhibiting psychotic sx's/bizarre behaviors. Pt and spouse are pleasant/cooperative, spouse brought pt to ED due to pt decompensating in past month. Pt has hx of Bipolar/Schizoaffective d/o, no prior psych admissions, is seen at [facility] and has been compliant with tx and medications. Per pt and spouse, pt has been decompensating for past month since medication changes, pt also had been drinking regularly but "cut way down" in past 2 weeks, denies any drug use. In past month pt has been more disorganized and confused at times, unable to follow conversations and then accusing others of changing the subject, making bizarre references per spouse "that have nothing to do with what is going on or what we were discussing". Pt also admits to feeling increasingly paranoid, feeling others are talking about her. PT reports AH but denies any commands, states the voices are getting more frequent. Pt also reports VH, seeing various animals in the home including a cat they do not own, another dog(they only have one) and a "stallion", pt has been seen by spouse "petting" animals that are not there. Pt and spouse provided several more examples of various hallucinations and bizarre behaviors from past month. Per spouse, earlier tonight pt called a friend out of state who is also a SW and spoke "gibberish" to her, friend spoke with spouse and suggested he bring pt to ED. Pt and spouse state that things are getting progressively worse, pt denies SI/HI but states "I can't take it anymore". PT is remains pleasant during interview, appears anxious and disheveled, denies drug use however admits to long hx of ETOH abuse, spouse states she "stopped a week ago because I wouldn't buy her anymore alcohol", however pt she had used ETOH in past 24 hours. VITAL SIGNS: See below. CURRENT MEDICATIONS: See below. MENTAL STATUS EXAMINATION: Patient is a 40 -year-old , Domiciled, , female, who was brought to the ED by her after exhibiting psychotic symptoms and bizarre behaviors. General Appearance: well-kempt, hospital scrubs/clothing Build: overweight Demeanor: Average Eye Contact: average Activity: fair Behavior: cooperative Speech: conversant, normal rate tone and volume Mood: euphoric at times Affect: bright Thought Process: at times loose associations Thought Content (Delusions): denies SI, HI, AVH, is mildly delusional Thought Content (Other): Mildly delusional Thought Content (Aggressive): none reported Perception (Hallucinations): none reported Perception (Other): none reported Cognition (Impairment of): good Cognition(Intelligence Est.): average Oriented: Awake, Alert, Oriented times three Insight: improving Judgment: improving Psychosis: Denies DIAGNOSES: Schizoaffective, Bipolar type. ASSESSMENT: Patient seen today, states she feels "much better." She is requesting to be discharged stating "I can do without all the crazy, I feel much better, I can't believe that I did all that when I came in, but you guys pulled me out of it, now I know to stick to what I know." Patient was begging to be discharged to home. She states that she will take all of her medications, going to groups, she has learned a lot of coping skills and plans to implement them. Complains about some peers annoying her. Continued to plead that she should be trusted to be safe at home, we reinforced with that she has improved, but she is not completely stable. Per staff patient continues to have loose associations making statement about seeing the writings on cervantes that can only be seen by a black light. RN reports that she stated there were police on the unit that had handcuffed peers. Patient wants to be discharged, and a meeting was planned with estate planner.associate merchandise planner reports patient has bizarre thinking and does not believe that patient is stable or safe for discharge. Meeting [facility], [place]. Patient will be discharged when she is stable. MANAGEMENT PLAN: Continue all medications. Increase Haldol to 10 mg BID TIME SPENT: 25 minutes. Vital Signs Vital Signs Date Time Temp Pulse Resp B/P (MAP) Pulse Ox O2 Delivery O2 Flow Rate FiO2 09/06/20 06:09 98.0 116 16 97/57 (70) 96 Room Air Current Medications Current Medications Medications (Trade) Dose Ordered Sig/Reid Route PRN Reason Start Time Stop Time Status Last Admin Dose Admin Acetaminophen (Tylenol Tab) 650 mg Q6HP PRN PO HEADACHE or DISCOMFORT 08/28/20 01:55 09/05/20 18:10 Al Hydrox/Mg Hydrox/Simethicone (Mylanta) 30 ml Q4HP PRN PO HEARTBURN/INDIGESTION 08/28/20 01:55 09/02/20 11:41 Aripiprazole (AbiLIFY) 5 mg QAM PO 09/01/20 09:00 09/02/20 13:50 DC 09/02/20 08:43 Aripiprazole (AbiLIFY) 10 mg BID PO 08/28/20 09:00 08/31/20 12:00 DC 08/31/20 08:07 Aripiprazole (AbiLIFY) 10 mg QHS PO 08/28/20 21:00 08/28/20 12:33 DC Aripiprazole (AbiLIFY) 10 mg QHS PO 09/01/20 21:00 09/03/20 12:15 DC 09/02/20 20:36 Aripiprazole (AbiLIFY) 20 mg DAILY PO 08/28/20 09:00 08/28/20 12:33 DC 08/28/20 09:18 Benztropine Mesylate (Cogentin) 3 mg BID PRN PO EXTRAPYRAMIDAL SYMPTOMS 08/28/20 03:45 Clonazepam (KlonoPIN) 0.5 mg BID PO 08/28/20 09:00 09/06/20 08:08 Ferrous Sulfate (Ferrous Sulfate) 325 mg DAILY PO 08/28/20 09:00 09/06/20 08:07 Fluoxetine HCl (PROzac) 60 mg DAILY PO 08/28/20 09:00 09/06/20 08:09 Haloperidol (Haldol) 5 mg BID PO 09/04/20 09:00 09/06/20 09:31 DC 09/06/20 08:08 Haloperidol (Haldol) 5 mg Q6HP PRN PO AGITATION 09/04/20 13:25 09/04/20 23:40 Haloperidol (Haldol) 10 mg BID PO 09/06/20 21:00 Home Med (Med Rec Complete!) ASDIRECTED XX 08/28/20 02:35 08/28/20 02:36 DC Hydroxyzine HCl (Atarax) 50 mg Q6H PO 09/02/20 18:00 09/03/20 12:16 DC 09/03/20 11:07 Lamotrigine (LaMICtal) 100 mg BID PO 08/28/20 09:00 09/06/20 08:07 Magnesium Hydroxide (Milk Of Magnesia) 30 ml DAILYPRN PRN PO CONSTIPATION 08/28/20 01:55 Metformin HCl (Glucophage) 500 mg BID@0800,1800 PO 08/28/20 08:00 09/06/20 08:08 Olanzapine (ZyPREXA ZYDIS) 5 mg TIDP PRN PO psychosis 09/02/20 18:40 09/03/20 12:15 DC 09/03/20 02:26 Olanzapine (ZyPREXA) 5 mg BID PO 08/28/20 21:00 08/28/20 12:40 DC Olanzapine (ZyPREXA) 5 mg QAM PO 09/03/20 09:00 09/03/20 12:15 DC 09/03/20 08:47 Olanzapine (ZyPREXA) 7.5 mg QHS PO 08/28/20 21:00 09/01/20 09:00 DC 08/31/20 19:49 Olanzapine (ZyPREXA) 10 mg QHS PO 09/02/20 21:00 09/03/20 14:26 DC 09/02/20 20:37 Omeprazole (PriLOSEC) 20 mg DAILY PO 08/28/20 09:00 09/06/20 08:09 Prazosin HCl (Minipress) 6 mg QHS PO 08/28/20 21:00 09/05/20 20:44 Topiramate (TopAMAX) 50 mg BID PO 08/28/20 09:00 09/06/20 08:08 Trazodone HCl (Desyrel) 50 mg QHSP PRN PO INSOMNIA 08/28/20 01:55 09/04/20 20:43 Triamcinolone Acetonide (Kenalog 0.1% Cream) APPLY TO MEDIAL THIGH AREA BIDP PRN TOP irritation 09/01/20 22:10 09/02/20 14:23 Allergies Coded Allergies: vancomycin (Verified Allergy, Unknown, red man's syndrome, 12/08/18) MARIA R CONTRERAS NP September 06, 2020 11:08
[2020-09-06 11:17] VITALS: BP 97/57
[2020-09-06 17:33] VITALS: BP 138/82
[2020-09-06] MEDS: PRAZOSIN 1 MG CAP PO SCH (20:12)
[2020-09-07] MEDS: MAALOX 30 ML SUSP *UDC PO PRN (05:52)
[2020-09-07 06:36] VITALS: BP 135/66
[2020-09-07] MEDS: FERROUS SULFATE 325MG TAB PO SCH (08:17)
[2020-09-07] MEDS: lamoTRIgine 100MG TAB PO SCH ×2 (08:17→20:20)
[2020-09-07] MEDS: TOPIRAMATE (TopAMAX) 25 MG TAB PO SCH ×2 (08:18→20:20)
[2020-09-07] MEDS: clonazePAM 0.5 MG TAB PO SCH ×2 (08:18→20:20)
[2020-09-07] MEDS: metFORMIN (GLUCOPHAGE) 500MG TAB PO SCH ×2 (08:18→17:06)
[2020-09-07] MEDS: FLUoxetine 20 MG CAP PO SCH (08:19)
[2020-09-07] MEDS: OMEPRAZOLE 20 MG CAP PO SCH (08:19)
[2020-09-07 17:42] VITALS: BP 133/78
[2020-09-07] MEDS: PRAZOSIN 1 MG CAP PO SCH (20:20)
[2020-09-08 05:33] VITALS: BP 110/76
[2020-09-08] MEDS: metFORMIN (GLUCOPHAGE) 500MG TAB PO SCH ×2 (07:51→17:27)
[2020-09-08] MEDS: FERROUS SULFATE 325MG TAB PO SCH (08:12)
[2020-09-08] MEDS: FLUoxetine 20 MG CAP PO SCH (08:12)
[2020-09-08] MEDS: lamoTRIgine 100MG TAB PO SCH ×2 (08:12→20:03)
[2020-09-08] MEDS: OMEPRAZOLE 20 MG CAP PO SCH (08:13)
[2020-09-08] MEDS: TOPIRAMATE (TopAMAX) 25 MG TAB PO SCH ×2 (08:13→20:03)
[2020-09-08] MEDS: clonazePAM 0.5 MG TAB PO SCH ×2 (08:13→20:03)
[2020-09-08] MEDS: CIPROFLOXACIN 500MG TABLET PO SCH (17:27)
[2020-09-08] MEDS: PRAZOSIN 1 MG CAP PO SCH (20:03)
[2020-09-08] MEDS: traZODone 50 MG TAB PO PRN (20:04)
[2020-09-09] MEDS: CIPROFLOXACIN 500MG TABLET PO SCH ×2 (06:03→17:02)
[2020-09-09 06:57] VITALS: BP 120/57
[2020-09-09] MEDS: metFORMIN (GLUCOPHAGE) 500MG TAB PO SCH ×2 (07:44→17:02)
[2020-09-09] MEDS: FLUoxetine 20 MG CAP PO SCH (08:28)
[2020-09-09] MEDS: clonazePAM 0.5 MG TAB PO SCH ×2 (08:28→20:22)
[2020-09-09] MEDS: lamoTRIgine 100MG TAB PO SCH ×2 (08:29→20:22)
[2020-09-09] MEDS: FERROUS SULFATE 325MG TAB PO SCH (08:29)
[2020-09-09] MEDS: TOPIRAMATE (TopAMAX) 25 MG TAB PO SCH ×2 (08:29→20:22)
[2020-09-09] MEDS: OMEPRAZOLE 20 MG CAP PO SCH (08:29)
[2020-09-09] MEDS: ACETAMINOPHEN TAB 650MG DOSE (2X325MG) PO PRN (11:37)
--- NOTE | 2020-09-09 12:15 | MHIPNPDOC ---
[facility] Progress Note Progress Note DATE OF SERVICE: 09/09/20 HISTORY: Patient is a 40 -year-old , Domiciled, , female, who was brought to the ED by her after exhibiting psychotic symptoms and bizarre behaviors. Patient continued to be hypomanic, paranoid and delusional.She attempted to explain what brought her to the ED. She said that her children and were worried about her because she was " very incoherent", Said they had an intervention for her as a family yesterday but she continued to be incoherent. Says that she fell out off her bed at 3 o'clock in the morning and her brought her to the ED. PER ED NOTE; Pt brought to ED by spouse for MHE, pt has reportedly been decompensating for past month exhibiting psychotic sx's/bizarre behaviors. Pt and spouse are pleasant/cooperative, spouse brought pt to ED due to pt decompensating in past month. Pt has hx of Bipolar/Schizoaffective d/o, no prior psych admissions, is seen at [facility] and has been compliant with tx and medications. Per pt and spouse, pt has been decompensating for past month since medication changes, pt also had been drinking regularly but "cut way down" in past 2 weeks, denies any drug use. In past month pt has been more disorganized and confused at times, unable to follow conversations and then accusing others of changing the subject, making bizarre references per spouse "that have nothing to do with what is going on or what we were discussing". Pt also admits to feeling increasingly paranoid, feeling others are talking about her. PT reports AH but denies any commands, states the voices are getting more frequent. Pt also reports VH, seeing various animals in the home including a cat they do not own, another dog(they only have one) and a "stallion", pt has been seen by spouse "petting" animals that are not there. Pt and spouse provided several more examples of various hallucinations and bizarre behaviors from past month. Per spouse, earlier tonight pt called a friend out of state who is also a SW and spoke "gibberish" to her, friend spoke with spouse and suggested he bring pt to ED. Pt and spouse state that things are getting progressively worse, pt denies SI/HI but states "I can't take it anymore". PT is remains pleasant during interview, appears anxious and disheveled, denies drug use however admits to long hx of ETOH abuse, spouse states she "stopped a week ago because I wouldn't buy her anymore alcohol", however pt she had used ETOH in past 24 hours. VITAL SIGNS: See below. CURRENT MEDICATIONS: See below. MENTAL STATUS EXAMINATION: Patient is a 40 -year-old , Domiciled, , female, who was brought to the ED by her after exhibiting psychotic symptoms and bizarre behaviors. General Appearance: well-kempt, hospital scrubs/clothing Build: overweight Demeanor: Average Eye Contact: average Activity: fair Behavior: cooperative Speech: Is fluid, conversant, normal rate, tone and volume Language skills are intact Thought processes including: linear and goal oriented Thought content: denies depression and anxiety. Denies suicidal/homicidal ideation, planning or intent. Abstract reasoning, and computation: fair Description of associations: denies, none observed Description of abnormal or psychotic thoughts: denies, none observed. Judgment: fair Insight: fair Orientation: alert and oriented to person, place, time and situation Recent and remote memory: intact Attention span and concentration: good Language: expansive Fund of knowledge: average Mood: Euphoric Mood/Animated Affect: Bright ASSESSMENT: Patient seen today. She has a bright mood and affect. Reports that her brought her to the hospital because she had fallen several times due to her alcohol intake. She reports that she was warned not to take her medications with alcohol trying to intensify the effects on a daily basis because she didn't feel that her medications were working. Reviewed with the patient some of her statements that she had made about her children running in the hospital. She was surprised that she had made those statements. She reports that the Haldol is working very well, she feels that she can think clearly. Patient's reports that she is doing better. She can carry a conversation without making bizarre statements. At this time, patient is stable and will be discharge to home. Reports having some auditory and visual hallucinations at home, but none today but this could be related to her alcohol use. MANAGEMENT PLAN: Continue all medications. Discharge tomorrow TIME SPENT: 25 minutes. Vital Signs Vital Signs Date Time Temp Pulse Resp B/P (MAP) Pulse Ox O2 Delivery O2 Flow Rate FiO2 09/09/20 06:57 97.6 116 20 120/57 (78) 96 Room Air Current Medications Current Medications Medications (Trade) Dose Ordered Sig/Reid Route PRN Reason Start Time Stop Time Status Last Admin Dose Admin Acetaminophen (Tylenol Tab) 650 mg Q6HP PRN PO HEADACHE or DISCOMFORT 08/28/20 01:55 09/09/20 11:37 Al Hydrox/Mg Hydrox/Simethicone (Mylanta) 30 ml Q4HP PRN PO HEARTBURN/INDIGESTION 08/28/20 01:55 09/07/20 05:52 Aripiprazole (AbiLIFY) 5 mg QAM PO 09/01/20 09:00 09/02/20 13:50 DC 09/02/20 08:43 Aripiprazole (AbiLIFY) 10 mg BID PO 08/28/20 09:00 08/31/20 12:00 DC 08/31/20 08:07 Aripiprazole (AbiLIFY) 10 mg QHS PO 08/28/20 21:00 08/28/20 12:33 DC Aripiprazole (AbiLIFY) 10 mg QHS PO 09/01/20 21:00 09/03/20 12:15 DC 09/02/20 20:36 Aripiprazole (AbiLIFY) 20 mg DAILY PO 08/28/20 09:00 08/28/20 12:33 DC 08/28/20 09:18 Benztropine Mesylate (Cogentin) 3 mg BID PRN PO EXTRAPYRAMIDAL SYMPTOMS 08/28/20 03:45 Ciprofloxacin (Cipro) 500 mg BID@06,18 PO 09/08/20 18:00 09/11/20 18:00 09/09/20 06:03 Clonazepam (KlonoPIN) 0.5 mg BID PO 08/28/20 09:00 09/09/20 08:28 Ferrous Sulfate (Ferrous Sulfate) 325 mg DAILY PO 08/28/20 09:00 09/09/20 08:29 Fluoxetine HCl (PROzac) 60 mg DAILY PO 08/28/20 09:00 09/09/20 08:28 Haloperidol (Haldol) 5 mg BID PO 09/04/20 09:00 09/06/20 09:31 DC 09/06/20 08:08 Haloperidol (Haldol) 5 mg Q6HP PRN PO AGITATION 09/04/20 13:25 09/04/20 23:40 Haloperidol (Haldol) 10 mg BID PO 09/06/20 21:00 09/09/20 08:29 Home Med (Med Rec Complete!) ASDIRECTED XX 08/28/20 02:35 08/28/20 02:36 DC Hydroxyzine HCl (Atarax) 50 mg Q6H PO 09/02/20 18:00 09/03/20 12:16 DC 09/03/20 11:07 Lamotrigine (LaMICtal) 100 mg BID PO 08/28/20 09:00 09/09/20 08:29 Magnesium Hydroxide (Milk Of Magnesia) 30 ml DAILYPRN PRN PO CONSTIPATION 08/28/20 01:55 Metformin HCl (Glucophage) 500 mg BID@0800,1800 PO 08/28/20 08:00 09/09/20 07:44 Olanzapine (ZyPREXA ZYDIS) 5 mg TIDP PRN PO psychosis 09/02/20 18:40 09/03/20 12:15 DC 09/03/20 02:26 Olanzapine (ZyPREXA) 5 mg BID PO 08/28/20 21:00 08/28/20 12:40 DC Olanzapine (ZyPREXA) 5 mg QAM PO 09/03/20 09:00 09/03/20 12:15 DC 09/03/20 08:47 Olanzapine (ZyPREXA) 7.5 mg QHS PO 08/28/20 21:00 09/01/20 09:00 DC 08/31/20 19:49 Olanzapine (ZyPREXA) 10 mg QHS PO 09/02/20 21:00 09/03/20 14:26 DC 09/02/20 20:37 Omeprazole (PriLOSEC) 20 mg DAILY PO 08/28/20 09:00 09/09/20 08:29 Prazosin HCl (Minipress) 6 mg QHS PO 08/28/20 21:00 09/08/20 20:03 Topiramate (TopAMAX) 50 mg BID PO 08/28/20 09:00 09/09/20 08:29 Trazodone HCl (Desyrel) 50 mg QHSP PRN PO INSOMNIA 08/28/20 01:55 09/08/20 20:04 Triamcinolone Acetonide (Kenalog 0.1% Cream) APPLY TO MEDIAL THIGH AREA BIDP PRN TOP irritation 09/01/20 22:10 09/02/20 14:23 Allergies Coded Allergies: vancomycin (Verified Allergy, Unknown, red man's syndrome, 12/08/18) MARIA R CONTRERAS NP September 09, 2020 12:15
[2020-09-09] MEDS ORDERED: CIPR-249 PO (14:34)
[2020-09-09] MEDS ORDERED: HALO10TA20 PO (14:34)
[2020-09-09 16:13] VITALS: BP 133/80
[2020-09-09 20:22] VITALS: BP 133/60
[2020-09-09] MEDS: PRAZOSIN 1 MG CAP PO SCH (20:22)
[2020-09-09] MEDS: traZODone 50 MG TAB PO PRN (20:22)
[2020-09-10] MEDS: CIPROFLOXACIN 500MG TABLET PO SCH (06:11)
[2020-09-10 06:42] VITALS: BP 98/66
[2020-09-10] MEDS: metFORMIN (GLUCOPHAGE) 500MG TAB PO SCH (07:36)
[2020-09-10] MEDS: clonazePAM 0.5 MG TAB PO SCH (08:09)
[2020-09-10] MEDS: FLUoxetine 20 MG CAP PO SCH (08:09)
[2020-09-10] MEDS: TOPIRAMATE (TopAMAX) 25 MG TAB PO SCH (08:10)
[2020-09-10] MEDS: lamoTRIgine 100MG TAB PO SCH (08:10)
[2020-09-10] MEDS: FERROUS SULFATE 325MG TAB PO SCH (08:10)
[2020-09-10] MEDS: OMEPRAZOLE 20 MG CAP PO SCH (08:10)
[2020-09-10] MEDS ORDERED: haloperidoL 5 MG TAB PO ONE (09:50)
--- NOTE | 2020-09-10 15:16 | MHDSPDOC ---
[facility] Discharge Summary Discharge Summary DATE OF ADMISSION: Aug 28, 2020 at 01:54 DATE OF DISCHARGE: September 10, 2020 at 0914 DISCHARGE DIAGNOSES: DIAGNOSES: Schizoaffective, Bipolar type. REASON FOR ADMISSION: Patient is a 40 -year-old , Domiciled, , female, who was brought to the ED by her after exhibiting psychotic symptoms and bizarre behaviors. Patient continued to be hypomanic, paranoid and delusional.She attempted to explain what brought her to the ED. She said that her children and were worried about her because she was " very incoherent", Said they had an intervention for her as a family yesterday but she continued to be incoherent. Says that she fell out off her bed at 3 o'clock in the morning and her brought her to the ED. PER ED NOTE; Pt brought to ED by spouse for MHE, pt has reportedly been decompensating for past month exhibiting psychotic sx's/bizarre behaviors. Pt and spouse are pleasant/cooperative, spouse brought pt to ED due to pt decompensating in past month. Pt has hx of Bipolar/Schizoaffective d/o, no prior psych admissions, is seen at [facility] and has been compliant with tx and medications. Per pt and spouse, pt has been decompensating for past month since medication changes, pt also had been drinking regularly but "cut way down" in past 2 weeks, denies any drug use. In past month pt has been more disorganized and confused at times, unable to follow conversations and then accusing others of changing the subject, making bizarre references per spouse "that have nothing to do with what is going on or what we were discussing". Pt also admits to feeling increasingly paranoid, feeling others are talking about her. PT reports AH but denies any commands, states the voices are getting more frequent. Pt also reports VH, seeing various animals in the home including a cat they do not own, another dog(they only have one) and a "stallion", pt has been seen by spouse "petting" animals that are not there. Pt and spouse provided several more examples of various hallucinations and bizarre behaviors from past month. Per spouse, earlier tonight pt called a friend out of state who is also a SW and spoke "gibberish" to her, friend spoke with spouse and suggested he bring pt to ED. Pt and spouse state that things are getting progressively worse, pt denies SI/HI but states "I can't take it anymore". PT is remains pleasant during interview, appears anxious and disheveled, denies drug use however admits to long hx of ETOH abuse, spouse states she "stopped a week ago because I wouldn't buy her anymore alcohol", however pt she had used ETOH in past 24 hours. VITALS: See Below CONSULTANTS INVOLVED: See Medical H + P by Hospitalist TREATMENT AND PROGRESS ON THE UNIT: Patient was admitted to the [facility] on a legal status he was afforded the following treatment modalities: 1) Individual Therapy 2) Group Therapy 3) Medication Management 4) Milieu Therapy 5) Safe Environment HOSPITAL COURSE: Patient was admitted to [facility] on a legal status and had a 14 day stay in psychiatry. Patient had been on Abilify and was tapered off this, Olanzapine was introduced for approximately 3 days. This did not improve the patient and H aldol was started. Both Abilify and Zyprexa was discontinued. She continued to have delusional and bizarre statements but was observed to be improving. Her thought process and content was improved at the end of her stay, although she continued to have moments of bizarre/delusional statements. At time of discharge she had full capabilities to report the history of her illness and that she had been drinking ETOH while taking her medications believing that this would intensify the effects of the medications. She had started to attend groups after some time and says that she learned therapies and coping skills in the groups. She expressed her gratitude reporting that she "felt empty and nothing made sense" After the initiation of Haldol she reported good effects and felt that her thinking was clearer. Educated to abstain from drugs and alcohol. DISCHARGE ASSESSMENT: In today's interview, patient is alert and oriented, pts dress is appropriate. Hygiene and grooming is well-kempt. Smiles on approach and is pleasant and engaged in the interview. Denies depression and anxiety. Denies suicidal and homicidal ideation, planning or intent. Denies and is not observed with aminata, psychotic symptoms of delusions, bizarre thinking, obsessions, paranoia, ruminations illogical thoughts, flight of ideas or having poor insight and judgement. Patient has normal mentation, declines further hospitalization on a voluntary status and meets criteria for discharge today. Patient encouraged to return to hospital if symptoms worsen or change and encouraged to call unit if he/she/they needs to speak to provider for questions regarding medications or care. MENTAL STATUS EXAMINATION ON DISCHARGE: Patient is a 40 -year-old , Domiciled, , female, who was brought to the ED by her after exhibiting psychotic symptoms and bizarre behaviors. Speech: Is fluid, conversant, normal rate, tone and volume Language skills are intact Thought processes including: linear and goal oriented Thought content: denies depression and anxiety. Denies suicidal/homicidal ideation, planning or intent. Abstract reasoning, and computation: fair Description of associations: denies, none observed Description of abnormal or psychotic thoughts: denies, none observed. Judgment: fair Insight: fair Orientation: alert and oriented to person, place, time and situation Recent and remote memory: intact Attention span and concentration: good Language: expansive Fund of knowledge: average Mood: Euthymic Mood Affect: reactive MEDICATIONS ON DISCHARGE: See Medication Reconciliation PLAN/FOLLOWUP ARRANGEMENTS: Patient is being discharged to home and following up at [facility] The amount of time spent in the coordination of care for this patient was approximately 25 minutes. ETOH/Disorder Med Rx ETOH/DRUG DISORDER RX: Offrd @ d/c & pt refused Vital Signs/I&Os Vital Signs Date Time Temp Pulse Resp B/P (MAP) Pulse Ox O2 Delivery O2 Flow Rate FiO2 09/10/20 06:42 97.9 103 18 98/66 (77) 98 Room Air Laboratory Data Microbiology Microbiology 09/07/20 Urine Culture - Final, Complete Medications Scheduled Ciprofloxacin HCl (Cipro) 500 Mg Tablet, 500 MG PO BID@ for UTI, #4 Clonazepam (Clonazepam) 0.5 Mg Tablet, 0.5 MG PO BID, (Reported) Cyanocobalamin (Cyanocobalamin Injection) 1,000 Mcg/1 Ml Vial, 1,000 MCG IM QMONTH, (Reported) Ferrous Sulfate (Ferrous Sulfate) 325 Mg Tablet, 325 MG PO DAILY, (Reported) Fluoxetine HCl (Prozac) 20 Mg Cap, 60 MG PO DAILY, (Reported) Haloperidol (Haloperidol) 10 Mg Tablet, 10 MG PO BID for Antipsychotic, #14 Lamotrigine (Lamotrigine) 100 Mg Tablet, 100 MG PO BID, (Reported) Metformin HCl (Metformin HCl) 500 Mg Tablet, 500 MG PO BID, (Reported) Multivitamin (Multivitamins) 1 Each Tablet, 1 TAB PO DAILY, (Reported) Omeprazole (Omeprazole) 20 Mg Capsule.dr, 20 MG PO DAILY, (Reported) Prazosin Hcl (Prazosin HCl) 2 Mg Cap, 6 MG PO QHS, (Reported) Topiramate (Topiramate) 50 Mg Tablet, 50 MG PO BID, (Reported) Zolpidem Tartrate (Ambien Cr) 12.5 Mg Tab, 12.5 MG PO QHS, (Reported) Scheduled PRN Acetaminophen/Pyrilamine/Caff (Midol Caplet) 1 Each Tablet, 1 TAB PO Q8H PRN for PAIN, (Reported) Benztropine Mesylate (Benztropine Mesylate) 1 Mg Tablet, 3 MG PO BID PRN for EXTRAPYRAMIDAL SYMPTOMS, (Reported) Ibuprofen (Ibuprofen) 800 Mg Tablet, 800 MG PO TID PRN for PAIN, (Reported) Ibuprofen/Acetaminophen (Advil Dual Action 250Mg-125Mg) 125 Mg-250 Mg Tablet, 1 TAB PO Q4H PRN for PAIN, (Reported) Zolpidem Tartrate (Edluar) 5 Mg Tab.subl, 5 MG SL QHS PRN for INSOMNIA, (Reported) Allergies Coded Allergies: vancomycin (Verified Allergy, Unknown, red man's syndrome, 12/08/18) MARIA R CONTRERAS NP September 10, 2020 09:23
== END 2020-09-10 10:55 | disposition home or self-care (01) | DRG 885 ==
LOC: M ED 22:59 → M ED INP 08-28 01:54 → M PSY 08-28 03:19
PROVIDERS: ADMIT Psychiatry & Neurology Psychiatry; ATTEND Psychiatry & Neurology Psychiatry
DX: F25.9 Schizoaffective disorder, unspecified (principal); F31.9 Bipolar disorder, unspecified; F10.10 Alcohol abuse, uncomplicated; E11.9 Type 2 diabetes mellitus without complications; F43.10 Post-traumatic stress disorder, unspecified; M25.571 Pain in right ankle and joints of right foot; Z81.8 Family history of other mental and behavioral disorders; Z79.899 Other long term (current) drug therapy; Z20.822 Contact with and (suspected) exposure to COVID-19; Z98.84 Bariatric surgery status; Z79.84 Long term (current) use of oral hypoglycemic drugs; Z88.1 Allergy status to other antibiotic agents; Z91.14 Patient's other noncompliance with medication regimen

== ENCOUNTER → 2020-10-30 | Outpatient (REF) | payer OTHER ==
[~2020-10-30] MED LIST changes: +ABIL10TA9 PO; +ABIL20TA5 PO; +ARIP1TAB43 PO; +BENZ-52 PO; +BENZ0.5T23 PO; +CIPR-249 PO; +CLON0.5T2 PO; +CYAN1000VL IM; +FERR325T18 PO; +HALO10TA20 PO; +IBUP-1857 PO; +IBUP1TAB7 PO; +IBUP80TA PO; +LAMO100T3 PO; +LOPE1CAP5 PO; +METF500T13 PO; +MIDOTAB PO; +MULT-40 PO; +OMEP-218 PO; +TOPI25TA10 PO; +TOPI50TA9 PO; +[UNRECOGNIZED DRUG - CODE] SL
== END ==
LOC: M LAB REF 19:31
PROVIDERS: ATTEND Nurse Practitioner Family
DX: R30.0 Dysuria (principal)

== ENCOUNTER 2021-06-26 12:23 | Inpatient (IN) | payer OTHER ==
[~2021-06-26] VITALS: Ht 162.6 cm; Wt 102.2 kg
[~2021-06-26 12:23] MED LIST changes: +OMEP-173 PO; -OMEP-218 PO
[2021-06-26 14:04] LABS: HEMATOCRIT 46.3 % (36.0-47.0); HEMOGLOBIN 15.1 g/dl (12.0-15.5); MEAN CORPUSCULAR HEMOGLOBIN 30.6 pg (27.0-33.0); MEAN CORPUSCULAR HGB CONC 32.6 g/dl (32.0-36.5); MEAN CORPUSCULAR VOLUME 93.7 fl (80.0-96.0); PLATELET COUNT, AUTOMATED 234 10^3/uL (150-450); RED BLOOD COUNT 4.94 10^6/uL (4.00-5.40); WHITE BLOOD COUNT 8.5 10^3/uL (4.0-10.0)
[2021-06-26 14:20] LABS: AMPHETAMINES LEVEL URINE NEGATIVE (NEGATIVE); BARBITURATES URINE NEGATIVE (NEGATIVE); BENZODIAZEPINES URINE NEGATIVE (NEGATIVE); CANNABINOIDS URINE NEGATIVE (NEGATIVE); COCAINE METABOLITE URINE NEGATIVE (NEGATIVE); METHADONE URINE NEGATIVE (NEGATIVE); OPIATES URINE NEGATIVE (NEGATIVE); PHENCYCLIDINE URINE NEGATIVE (NEGATIVE)
[2021-06-26] MEDS ORDERED: traZODone 50 MG TAB PO PRN (14:40)
[2021-06-26] MEDS ORDERED: MOM 30ML SUSPENSION UDC PO PRN (14:40)
[2021-06-26] MEDS ORDERED: OLANZapine ORAL DISINTEGRATING TAB 5MG PO PRN (14:40)
[2021-06-26 14:42] LABS: ACETAMINOPHEN LEVEL < 2.0 UG/ML (10.0-30.0); ALBUMIN 3.9 GM/DL (3.2-5.2); ALT/SGPT 18 U/L (12-78); BILIRUBIN,DIRECT < 0.1 MG/DL (0.0-0.2); BILIRUBIN,TOTAL 0.3 MG/DL (0.2-1.0); BLOOD UREA NITROGEN 11 MG/DL (7-18); CALCIUM LEVEL 9.5 MG/DL (8.5-10.1); CARBON DIOXIDE LEVEL 24 MEQ/L (21-32); CHLORIDE LEVEL 106 MEQ/L (98-107); CREATININE FOR GFR 0.91 MG/DL (0.55-1.30); ETHYL ALCOHOL (ETHANOL) < 0.003 % (0.000-0.010); GLOMERULAR FILTRATION RATE > 60.0 (>58); GLUCOSE, FASTING 127 MG/DL (70-100); POTASSIUM SERUM 4.5 MEQ/L (3.5-5.1); SALICYLATE LEVEL 1.9 MG/DL (5.0-30.0); SODIUM LEVEL 138 MEQ/L (136-145); TOTAL PROTEIN 6.9 GM/DL (6.4-8.2)
[2021-06-26 14:47] LABS: RSV AMPLIFICATION NEGATIVE (NEGATIVE)
[2021-06-26] MEDS ORDERED: FLUO40CA PO (15:44)
[2021-06-26] MEDS ORDERED: RAME8TAB2 PO (15:44)
[2021-06-26] MEDS ORDERED: LUMA42CA PO (15:44)
[2021-06-26] MEDS ORDERED: ESZO1TAB6 PO (15:44)
[2021-06-26] MEDS ORDERED: NITR100C2 PO (15:44)
[2021-06-26] MEDS ORDERED: METF500T13 PO (15:47)
[2021-06-26] MEDS ORDERED: QUET50TA4 PO (15:47)
[2021-06-26] MEDS ORDERED: PRAZ2CAP PO (15:47)
[2021-06-26] MEDS ORDERED: LAMO200T3 PO (15:47)
[2021-06-26] MEDS ORDERED: VALB40CA PO (15:47)
[2021-06-26] MEDS ORDERED: HOME MED LIST COMPLETE! XX SCH (15:50)
[2021-06-26 15:54] VITALS: BP 127/73
[2021-06-26] MEDS: metFORMIN (GLUCOPHAGE) 500MG TAB PO SCH (21:43)
[2021-06-26] MEDS: QUEtiapine FUMARATE 50MG TAB PO SCH (21:43)
[2021-06-26] MEDS: NITROFURANTOIN (MACROBID) 100 MG CAP PO SCH (21:43)
[2021-06-26] MEDS: RAMELTEON 8 MG TAB (ROZEREM) PO SCH (21:43)
[2021-06-26] MEDS: lamoTRIgine 100MG TAB PO SCH (21:43)
[2021-06-26] MEDS: PRAZOSIN 1 MG CAP PO SCH (21:46)
[2021-06-27] MEDS: ACETAMINOPHEN TAB 650MG DOSE (2X325MG) PO PRN (04:00)
[2021-06-27 06:20] VITALS: BP 109/58
[2021-06-27] MEDS: lamoTRIgine 100MG TAB PO SCH ×2 (08:41→21:33)
[2021-06-27] MEDS: FLUoxetine 20 MG CAP PO SCH (08:41)
[2021-06-27] MEDS: NITROFURANTOIN (MACROBID) 100 MG CAP PO SCH ×2 (08:41→21:32)
[2021-06-27] MEDS: metFORMIN (GLUCOPHAGE) 500MG TAB PO SCH ×2 (08:41→21:32)
[2021-06-27] MEDS: QUEtiapine FUMARATE 50MG TAB PO SCH ×3 (08:41→21:32)
[2021-06-27] MEDS: MAALOX 30 ML SUSP *UDC PO PRN (09:57)
[2021-06-27 11:10] LABS: CHOLESTEROL RISK RATIO 3.166 (<5)
[2021-06-27 18:31] VITALS: BP 116/71
[2021-06-27] MEDS: LUNESTA 3 MG PO SCH (21:30)
[2021-06-27] MEDS: INGREZZA 40 MG PO SCH (21:31)
[2021-06-27] MEDS: PRAZOSIN 1 MG CAP PO SCH (21:32)
[2021-06-27] MEDS: CAPLYTA 42 MG PO SCH (21:32)
[2021-06-27] MEDS: RAMELTEON 8 MG TAB (ROZEREM) PO SCH (21:32)
[2021-06-28] MEDS: ACETAMINOPHEN TAB 650MG DOSE (2X325MG) PO PRN (02:41)
[2021-06-28 07:28] VITALS: BP 107/63
[2021-06-28] MEDS: PILL CUTTER 1 EACH XX PRN ×2 (08:36→20:45)
[2021-06-28] MEDS: lamoTRIgine 100MG TAB PO SCH ×2 (08:37→20:47)
[2021-06-28] MEDS: QUEtiapine FUMARATE 50MG TAB PO SCH ×3 (08:38→20:47)
[2021-06-28] MEDS: NITROFURANTOIN (MACROBID) 100 MG CAP PO SCH ×2 (08:38→20:46)
[2021-06-28] MEDS: FLUoxetine 20 MG CAP PO SCH (08:38)
[2021-06-28] MEDS: metFORMIN (GLUCOPHAGE) 500MG TAB PO SCH ×2 (08:38→20:48)
[2021-06-28 19:01] VITALS: BP 128/96
[2021-06-28] MEDS: LUNESTA 3 MG PO SCH (20:45)
[2021-06-28] MEDS: INGREZZA 40 MG PO SCH (20:45)
[2021-06-28] MEDS: RAMELTEON 8 MG TAB (ROZEREM) PO SCH (20:46)
[2021-06-28] MEDS: PRAZOSIN 1 MG CAP PO SCH (20:46)
[2021-06-28] MEDS: CAPLYTA 42 MG PO SCH (20:48)
[2021-06-28] MEDS: MAALOX 30 ML SUSP *UDC PO PRN (21:06)
[2021-06-29 06:35] VITALS: BP 118/68
[2021-06-29 06:36] VITALS: BP 116/70
[2021-06-29] MEDS: PILL CUTTER 1 EACH XX PRN ×2 (08:18→20:44)
[2021-06-29] MEDS: lamoTRIgine 100MG TAB PO SCH ×2 (08:18→20:45)
[2021-06-29] MEDS: metFORMIN (GLUCOPHAGE) 500MG TAB PO SCH ×2 (08:19→20:45)
[2021-06-29] MEDS: QUEtiapine FUMARATE 50MG TAB PO SCH ×3 (08:19→20:44)
[2021-06-29] MEDS: FLUoxetine 20 MG CAP PO SCH (08:19)
[2021-06-29] MEDS: NITROFURANTOIN (MACROBID) 100 MG CAP PO SCH ×2 (08:19→20:44)
[2021-06-29] MEDS: ACETAMINOPHEN TAB 650MG DOSE (2X325MG) PO PRN (08:52)
[2021-06-29 19:14] VITALS: BP 113/62
[2021-06-29 20:44] VITALS: BP 110/75
[2021-06-29] MEDS: PRAZOSIN 1 MG CAP PO SCH (20:44)
[2021-06-29] MEDS: RAMELTEON 8 MG TAB (ROZEREM) PO SCH (20:44)
[2021-06-29] MEDS: LUNESTA 3 MG PO SCH (20:46)
[2021-06-29] MEDS: INGREZZA 40 MG PO SCH (20:47)
[2021-06-29] MEDS: CAPLYTA 42 MG PO SCH (20:47)
[2021-06-30 06:10] VITALS: BP 101/58
[2021-06-30] MEDS ORDERED: LAMO100T80 PO (07:50)
[2021-06-30] MEDS ORDERED: LAMO25TA4 PO (07:50)
[2021-06-30] MEDS: QUEtiapine FUMARATE 50MG TAB PO SCH (08:22)
[2021-06-30] MEDS: metFORMIN (GLUCOPHAGE) 500MG TAB PO SCH (08:22)
[2021-06-30] MEDS: lamoTRIgine 100MG TAB PO SCH (08:22)
[2021-06-30] MEDS: PILL CUTTER 1 EACH XX PRN (08:23)
[2021-06-30] MEDS: FLUoxetine 20 MG CAP PO SCH (08:25)
== END 2021-06-30 12:00 | disposition home or self-care (01) | DRG 885 ==
LOC: M ED 12:23 → EEVIPCON 14:36 → M ED INP 14:36 → M PSY 15:43
PROVIDERS: ADMIT Psychiatry & Neurology Psychiatry; ATTEND Psychiatry & Neurology Psychiatry
DX: F25.0 Schizoaffective disorder, bipolar type (principal); F43.10 Post-traumatic stress disorder, unspecified; Z79.899 Other long term (current) drug therapy; Z88.8 Allergy status to other drugs, medicaments and biological substances; E66.9 Obesity, unspecified; F41.9 Anxiety disorder, unspecified; Z87.442 Personal history of urinary calculi

== ENCOUNTER 2021-09-17 08:45 | Day surgery (SDC) | payer OTHER ==
[~2021-09-17] VITALS: Ht 162.6 cm; Wt 106.1 kg
[~2021-09-17 08:45] MED LIST changes: +ACETAMINOPHEN *IV* 1,000 MG IV ONE; +ESZO1TAB6 PO; +FLUO40CA PO; +GABAPENTIN 300 MG CAP PO ONE; +LAMI25CH PO; +LAMO100T80 PO; +LAMO25TA4 PO; +LR 1,000 ML IV ONE; +LUMA42CA PO; +NITR100C2 PO; +QUET50TA4 PO; +RAME8TAB2 PO; +VALB40CA PO; +ceFAZolin SOD 2 GM in IV 1 EA IV ONE
[2021-09-17 09:31] LABS: BASO % 0.5 % (0.0-1.0); HEMATOCRIT 44.1 % (36.0-47.0); HEMOGLOBIN 14.4 g/dl (12.0-15.5); LYMPH # 1.8 10^3/uL (1.5-5.0); LYMPH % 26.9 % (24.0-44.0); MEAN CORPUSCULAR HEMOGLOBIN 31.3 pg (27.0-33.0); MEAN CORPUSCULAR HGB CONC 32.7 g/dl (32.0-36.5); MEAN CORPUSCULAR VOLUME 95.9 fl (80.0-96.0); MONO # 0.6 10^3/uL (0.0-0.8); MONO % 9.6 % (2.0-8.0); NEUTROPHILS # 4.1 10^3/uL (1.5-8.5); NEUTROPHILS % 62.5 % (36.0-66.0); PLATELET COUNT, AUTOMATED 263 10^3/uL (150-450); WHITE BLOOD COUNT 6.6 10^3/uL (4.0-10.0)
[2021-09-17 09:52] LABS: HCG, SERUM QUALITATIVE NEGATIVE (NEGATIVE)
[2021-09-17 09:53] LABS: ALBUMIN 3.6 GM/DL (3.2-5.2); ALT/SGPT 23 U/L (12-78); BILIRUBIN,TOTAL 0.4 MG/DL (0.2-1.0); BLOOD UREA NITROGEN 11 MG/DL (7-18); CALCIUM LEVEL 9.1 MG/DL (8.5-10.1); CARBON DIOXIDE LEVEL 27 MEQ/L (21-32); CHLORIDE LEVEL 107 MEQ/L (98-107); CREATININE FOR GFR 0.87 MG/DL (0.55-1.30); GLOMERULAR FILTRATION RATE > 60.0 (>58); GLUCOSE, FASTING 110 MG/DL (70-100); POTASSIUM SERUM 4.7 MEQ/L (3.5-5.1); SODIUM LEVEL 141 MEQ/L (136-145); TOTAL PROTEIN 6.6 GM/DL (6.4-8.2)
[2021-09-17] MEDS ORDERED: SCOPOLAMINE 1MG TRANSDERMAL PATCH TOP ONE (10:00)
[2021-09-17] MEDS ORDERED: LIDOCAINE W/EPINEPHRINE 1% 20ML VIAL As Ordered ONE (12:04)
[2021-09-17] MEDS ORDERED: ACETAMINOPHEN 1000MG 100ML IV BTL (OFIRMEV) (J0131 PER 10MG) As Ordered ONE (13:00)
[2021-09-17] MEDS ORDERED: ROCURONIUM BROMIDE 50 MG/5 ML VIAL As Ordered ONE (13:22)
[2021-09-17] MEDS ORDERED: propofoL 200 MG/20 ML VIAL As Ordered ONE (13:22)
[2021-09-17] MEDS ORDERED: fentaNYL 250 MCG/5 ML INJECTION As Ordered ONE (13:22)
[2021-09-17] MEDS ORDERED: ONDANSETRON 4MG/2ML VIAL As Ordered ONE (13:22)
[2021-09-17] MEDS ORDERED: LIDOCAINE 2% 100MG/5ML SDV (FOR ANES.) As Ordered ONE (13:22)
[2021-09-17] MEDS ORDERED: MIDAZOLAM INJ 2MG/2ML VIAL (J2250 PER 1MG) As Ordered ONE (13:22)
[2021-09-17] MEDS ORDERED: dexameTHASONE 4 MG/ML 1ML VIAL (J1100 PER 1MG) As Ordered ONE (13:22)
[2021-09-17] MEDS ORDERED: SUGAMMADEX SODIUM 500 MG/5 ML VIAL (BRIDION) As Ordered ONE (13:24)
[2021-09-17] MEDS ORDERED: HYDROmorphone HCL 2MG/ML 1ML VIAL As Ordered ONE (13:56)
[2021-09-17] MEDS ORDERED: ONDANSETRON 4MG/2ML VIAL IV PRN ×2 (14:55→15:10)
[2021-09-17] MEDS ORDERED: ACETAMINOPHEN 500 MG TAB PO PRN (14:55)
[2021-09-17] MEDS ORDERED: PROMETHAZINE 25MG/ML 1ML VIAL IV PRN (15:10)
[2021-09-17] MEDS ORDERED: fentaNYL 100 MCG/2 ML INJECTION IV PRN (15:10)
[2021-09-17] MEDS ORDERED: LR 1,000 ML IV SCH (15:10)
[2021-09-17] MEDS ORDERED: oxyCODONE 5MG TAB PO PRN (15:10)
[2021-09-17] MEDS ORDERED: METOCLOPRAMIDE INJ 10MG/2ML VIAL (J2765 PER 1) IV PRN (15:10)
[2021-09-17] MEDS: HYDROMORPHONE HCL 0.5 MG/ 0.5 ML SYRINGE (J1170 PER 1) IV PRN ×4 (15:18→15:57)
[2021-09-17] MEDS: oxyCODONE 5MG TAB PO PRN ×2 (15:19→15:56)
[2021-09-17] MEDS: KETOROLAC 30 MG/ML 1ML VIAL IV SCH ×2 (15:57→22:08)
[2021-09-17 17:00] VITALS: BP 100/64
[2021-09-17 17:30] VITALS: BP 106/68
[2021-09-17 18:00] VITALS: BP 110/70
[2021-09-17 19:00] VITALS: BP 104/61
[2021-09-17] MEDS ORDERED: RAMELTEON 8 MG TAB (ROZEREM) PO SCH (21:00)
[2021-09-17] MEDS ORDERED: lamoTRIgine 25MG TAB PO SCH (21:00)
[2021-09-17] MEDS ORDERED: ESZOPICLONE 3 MG PO SCH (21:00)
[2021-09-17] MEDS ORDERED: LUMATEPERONE 42 MG PO SCH (21:00)
[2021-09-17] MEDS ORDERED: PRAZOSIN 1 MG CAP PO SCH (21:00)
[2021-09-17] MEDS ORDERED: VALBENAZINE 40 MG PO SCH (21:00)
[2021-09-17] MEDS: LR 1,000 ML IV SCH ×2 (22:06→22:34)
[2021-09-17] MEDS: DOCUSATE SODIUM 100MG CAPSULE PO SCH (22:10)
[2021-09-17] MEDS: SENNA 8.6 MG TAB (SENOKOT) PO SCH (22:10)
[2021-09-17] MEDS: QUEtiapine FUMARATE 50MG TAB PO SCH (22:12)
[2021-09-17] MEDS: lamoTRIgine 100MG TAB PO SCH (22:15)
[2021-09-17 22:17] VITALS: BP 104/63
[2021-09-17 22:50] VITALS: BP 98/74
[2021-09-18 02:00] VITALS: BP 112/58
[2021-09-18] MEDS: KETOROLAC 30 MG/ML 1ML VIAL IV SCH ×2 (04:46→10:20)
[2021-09-18 05:29] VITALS: BP 121/63
[2021-09-18 07:24] LABS: BASO % 0.3 % (0.0-1.0); EOS % 0.1 % (0.0-3.0); HEMATOCRIT 37.7 % (36.0-47.0); LYMPH # 2.3 10^3/uL (1.5-5.0); LYMPH % 22.7 % (24.0-44.0); MEAN CORPUSCULAR HEMOGLOBIN 31.4 pg (27.0-33.0); MEAN CORPUSCULAR HGB CONC 32.4 g/dl (32.0-36.5); MEAN CORPUSCULAR VOLUME 97.2 fl (80.0-96.0); MONO # 1.1 10^3/uL (0.0-0.8); MONO % 10.7 % (2.0-8.0); NEUTROPHILS # 6.7 10^3/uL (1.5-8.5); NEUTROPHILS % 65.6 % (36.0-66.0); PLATELET COUNT, AUTOMATED 259 10^3/uL (150-450); RED BLOOD COUNT 3.88 10^6/uL (4.00-5.40); WHITE BLOOD COUNT 10.2 10^3/uL (4.0-10.0)
[2021-09-18 07:29] LABS: HEMOGLOBIN 12.2 g/dl (12.0-15.5)
[2021-09-18] MEDS: LR 1,000 ML IV SCH (07:41)
[2021-09-18] MEDS: lamoTRIgine 100MG TAB PO SCH (07:45)
[2021-09-18] MEDS: SENNA 8.6 MG TAB (SENOKOT) PO SCH (07:45)
[2021-09-18] MEDS: QUEtiapine FUMARATE 50MG TAB PO SCH (07:46)
[2021-09-18] MEDS: DOCUSATE SODIUM 100MG CAPSULE PO SCH (07:46)
[2021-09-18] MEDS: oxyCODONE 5MG TAB PO PRN (07:47)
[2021-09-18 08:52] VITALS: O2SAT 94
[2021-09-18] MEDS ORDERED: FLUoxetine 20MG CAP PO SCH (09:00)
[2021-09-18 10:00] VITALS: BP 119/69
[2021-09-18] MEDS ORDERED: IBUPROFEN 800 MG TAB PO SCH (18:00)
== END 2021-09-18 10:57 | disposition home or self-care (01) ==
LOC: UNDOADMIN 08:45 → M SDC 08:45 → M OR 08:45 → EDSTATUS 10:30 → ENRESERV 14:42 → M MSPAV 17:03 → M OR 17:03 → M MSPAV 17:03 → M SDC 09-18 10:57 → UNDODISIN 09-18 10:57
PROVIDERS: ATTEND Obstetrics & Gynecology
DX: D06.9 Carcinoma in situ of cervix, unspecified (principal); K21.9 Gastro-esophageal reflux disease without esophagitis; F32.A Depression, unspecified; F41.9 Anxiety disorder, unspecified; Z79.899 Other long term (current) drug therapy; Z98.84 Bariatric surgery status; Z88.1 Allergy status to other antibiotic agents
CPT/HCPCS: 36415; 58262; 80053; 84703; 85025; 86850; 86900; 86901; 88307; 88341; 88342; 96361; 96374; 96376; J0131; J0690; J1100; J1170; J1885; J2250; J2405; J3010

== ENCOUNTER 2022-01-07 11:00 | Inpatient (IN) | payer OTHER ==
[~2022-01-07] VITALS: Ht 162.6 cm; Wt 106.9 kg
[~2022-01-07 11:00] MED LIST changes: -ACETAMINOPHEN *IV* 1,000 MG IV ONE; -GABAPENTIN 300 MG CAP PO ONE; -LR 1,000 ML IV ONE; -ceFAZolin SOD 2 GM in IV 1 EA IV ONE
[2022-01-07 12:34] LABS: HEMATOCRIT 44.3 % (36.0-47.0); HEMOGLOBIN 13.9 g/dl (12.0-15.5); MEAN CORPUSCULAR HEMOGLOBIN 28.8 pg (27.0-33.0); MEAN CORPUSCULAR HGB CONC 31.4 g/dl (32.0-36.5); MEAN CORPUSCULAR VOLUME 91.7 fl (80.0-96.0); PLATELET COUNT, AUTOMATED 289 10^3/uL (150-450); RED BLOOD COUNT 4.83 10^6/uL (4.00-5.40); WHITE BLOOD COUNT 8.7 10^3/uL (4.0-10.0)
[2022-01-07 13:06] LABS: HCG, SERUM QUALITATIVE NEGATIVE (NEGATIVE)
[2022-01-07 13:13] LABS: AMPHETAMINES LEVEL URINE NEGATIVE (NEGATIVE); BARBITURATES URINE NEGATIVE (NEGATIVE); BENZODIAZEPINES URINE NEGATIVE (NEGATIVE); CANNABINOIDS URINE POSITIVE (NEGATIVE); COCAINE METABOLITE URINE NEGATIVE (NEGATIVE); METHADONE URINE NEGATIVE (NEGATIVE); OPIATES URINE NEGATIVE (NEGATIVE); PHENCYCLIDINE URINE NEGATIVE (NEGATIVE)
[2022-01-07 13:19] LABS: RSV AMPLIFICATION NEGATIVE (NEGATIVE)
[2022-01-07 13:23] LABS: ACETAMINOPHEN LEVEL < 2.0 UG/ML (10.0-30.0); ALBUMIN 3.9 GM/DL (3.2-5.2); ALT/SGPT 14 U/L (12-78); BILIRUBIN,DIRECT 0.1 MG/DL (0.0-0.2); BILIRUBIN,TOTAL 0.3 MG/DL (0.2-1.0); BLOOD UREA NITROGEN 11 MG/DL (7-18); CALCIUM LEVEL 9.4 MG/DL (8.5-10.1); CARBON DIOXIDE LEVEL 24 MEQ/L (21-32); CHLORIDE LEVEL 105 MEQ/L (98-107); ETHYL ALCOHOL (ETHANOL) 0.003 % (0.000-0.010); GLOMERULAR FILTRATION RATE > 60.0 (>58); GLUCOSE, FASTING 88 MG/DL (70-100); POTASSIUM SERUM 4.3 MEQ/L (3.5-5.1); SALICYLATE LEVEL < 1.7 MG/DL (5.0-30.0); SODIUM LEVEL 137 MEQ/L (136-145); TOTAL PROTEIN 6.9 GM/DL (6.4-8.2)
[2022-01-07] MEDS ORDERED: BENZ2TAB5 PO (16:29)
[2022-01-07] MEDS ORDERED: CLON1TAB8 PO (16:29)
[2022-01-07] MEDS ORDERED: HOME MED LIST COMPLETE! XX SCH (16:30)
[2022-01-08] MEDS: QUEtiapine FUMARATE 50MG TAB PO SCH ×3 (12:11→20:51)
[2022-01-08] MEDS: FLUoxetine 20MG CAP PO SCH (12:11)
[2022-01-08] MEDS: metFORMIN (GLUCOPHAGE) 500MG TAB PO SCH ×2 (12:12→18:58)
[2022-01-08] MEDS: lamoTRIgine 100MG TAB PO SCH ×2 (13:09→20:50)
[2022-01-08] MEDS: RAMELTEON 8 MG TAB (ROZEREM) PO SCH (20:50)
[2022-01-08] MEDS: BENZTROPINE 2 MG TAB PO SCH (20:51)
[2022-01-08] MEDS ORDERED: BENZTROPINE 2 MG TAB PO SCH (21:00)
[2022-01-08] MEDS: PRAZOSIN 1 MG CAP PO SCH (22:02)
[2022-01-09] MEDS: metFORMIN (GLUCOPHAGE) 500MG TAB PO SCH ×2 (08:55→20:26)
[2022-01-09] MEDS ORDERED: lamoTRIgine 25MG TAB PO ONE (09:00)
[2022-01-09] MEDS ORDERED: lamoTRIgine 100MG TAB PO SCH (09:00)
[2022-01-09] MEDS: lamoTRIgine 100MG TAB PO SCH ×2 (09:50→20:28)
[2022-01-09] MEDS: clonazePAM 1 MG TAB PO PRN (09:50)
[2022-01-09] MEDS: QUEtiapine FUMARATE 50MG TAB PO SCH ×3 (09:50→20:52)
[2022-01-09] MEDS: FLUoxetine 20MG CAP PO SCH (09:50)
[2022-01-09] MEDS: RAMELTEON 8 MG TAB (ROZEREM) PO SCH (20:27)
[2022-01-09] MEDS: PRAZOSIN 1 MG CAP PO SCH (20:27)
[2022-01-09] MEDS: BENZTROPINE 2 MG TAB PO SCH (20:29)
[2022-01-10] MEDS: metFORMIN (GLUCOPHAGE) 500MG TAB PO SCH ×2 (08:00→16:34)
[2022-01-10] MEDS: QUEtiapine FUMARATE 50MG TAB PO SCH ×3 (09:00→20:44)
[2022-01-10] MEDS: lamoTRIgine 100MG TAB PO SCH ×2 (09:00→20:44)
[2022-01-10] MEDS: FLUoxetine 20MG CAP PO SCH (09:00)
[2022-01-10] MEDS: clonazePAM 1 MG TAB PO PRN ×2 (10:12→16:35)
[2022-01-10] MEDS: BENZTROPINE 2 MG TAB PO SCH (20:44)
[2022-01-10] MEDS: RAMELTEON 8 MG TAB (ROZEREM) PO SCH (20:44)
[2022-01-10] MEDS: PRAZOSIN 1 MG CAP PO SCH (20:46)
[2022-01-11] MEDS: metFORMIN (GLUCOPHAGE) 500MG TAB PO SCH ×2 (08:00→17:33)
[2022-01-11] MEDS: lamoTRIgine 100MG TAB PO SCH ×2 (08:48→21:00)
[2022-01-11] MEDS: QUEtiapine FUMARATE 50MG TAB PO SCH ×3 (08:49→21:00)
[2022-01-11] MEDS: FLUoxetine 20MG CAP PO SCH (08:49)
[2022-01-11] MEDS: RAMELTEON 8 MG TAB (ROZEREM) PO SCH (21:00)
[2022-01-11] MEDS: BENZTROPINE 2 MG TAB PO SCH (21:00)
[2022-01-11] MEDS: PRAZOSIN 1 MG CAP PO SCH (21:00)
[2022-01-12] MEDS: FLUoxetine 20MG CAP PO SCH (08:26)
[2022-01-12] MEDS: metFORMIN (GLUCOPHAGE) 500MG TAB PO SCH ×2 (08:27→17:02)
[2022-01-12] MEDS: lamoTRIgine 100MG TAB PO SCH ×2 (08:27→20:45)
[2022-01-12] MEDS: QUEtiapine FUMARATE 50MG TAB PO SCH ×3 (08:28→20:44)
[2022-01-12] MEDS ORDERED: NICOTINE 21MG/24HR 1 EA TRANSDERMAL TD SCH (09:00)
[2022-01-12] MEDS: clonazePAM 1 MG TAB PO PRN (12:20)
[2022-01-12 13:01] LABS: RSV AMPLIFICATION NEGATIVE (NEGATIVE)
[2022-01-12] MEDS ORDERED: MOM 30ML SUSPENSION UDC PO PRN (13:15)
[2022-01-12] MEDS ORDERED: traZODone 50 MG TAB PO PRN (13:15)
[2022-01-12] MEDS ORDERED: IBUPROFEN 400MG TAB PO PRN (13:15)
[2022-01-12 14:53] VITALS: BP 153/93
[2022-01-12] MEDS: PRAZOSIN 1 MG CAP PO SCH (20:44)
[2022-01-12] MEDS: BENZTROPINE 2 MG TAB PO SCH (20:45)
[2022-01-12] MEDS: RAMELTEON 8 MG TAB (ROZEREM) PO SCH (20:45)
[2022-01-13 06:34] VITALS: BP 117/67
[2022-01-13] MEDS: MAALOX 30 ML SUSP *UDC PO PRN (07:43)
[2022-01-13] MEDS: QUEtiapine FUMARATE 50MG TAB PO SCH (08:14)
[2022-01-13] MEDS: lamoTRIgine 100MG TAB PO SCH ×2 (08:14→20:49)
[2022-01-13] MEDS: FLUoxetine 20MG CAP PO SCH (08:14)
[2022-01-13] MEDS: metFORMIN (GLUCOPHAGE) 500MG TAB PO SCH ×2 (08:14→17:07)
[2022-01-13] MEDS ORDERED: ONDANSETRON 4MG ORAL DISINTEGRATING TAB PO PRN (11:00)
[2022-01-13 16:36] VITALS: BP 113/65
[2022-01-13] MEDS: BENZTROPINE 2 MG TAB PO SCH (20:49)
[2022-01-13] MEDS: PRAZOSIN 1 MG CAP PO SCH (20:49)
[2022-01-13] MEDS: RAMELTEON 8 MG TAB (ROZEREM) PO SCH (20:49)
[2022-01-14 06:28] VITALS: BP 110/70
[2022-01-14 07:01] LABS: CHOLESTEROL RISK RATIO 2.861 (<5)
[2022-01-14] MEDS: metFORMIN (GLUCOPHAGE) 500MG TAB PO SCH ×2 (07:33→17:11)
[2022-01-14] MEDS: lamoTRIgine 100MG TAB PO SCH ×2 (07:33→20:13)
[2022-01-14] MEDS: FLUoxetine 20MG CAP PO SCH (07:34)
[2022-01-14] MEDS: CLOTRIMAZOLE 1% VAG CR 45 GM TOP SCH ×2 (09:00→21:57)
[2022-01-14 16:00] VITALS: BP 127/68
[2022-01-14] MEDS: RAMELTEON 8 MG TAB (ROZEREM) PO SCH (20:12)
[2022-01-14] MEDS: MAALOX 30 ML SUSP *UDC PO PRN (20:12)
[2022-01-14] MEDS: BENZTROPINE 2 MG TAB PO SCH (20:12)
[2022-01-14] MEDS: PRAZOSIN 1 MG CAP PO SCH (20:13)
[2022-01-15 06:20] VITALS: BP 124/78
[2022-01-15] MEDS: FLUoxetine 20MG CAP PO SCH (09:08)
[2022-01-15] MEDS: metFORMIN (GLUCOPHAGE) 500MG TAB PO SCH ×2 (09:08→17:13)
[2022-01-15] MEDS: lamoTRIgine 100MG TAB PO SCH ×2 (09:08→21:08)
[2022-01-15] MEDS: CLOTRIMAZOLE 1% VAG CR 45 GM TOP SCH ×2 (09:09→21:07)
[2022-01-15] MEDS ORDERED: HALOPERIDOL DECANOATE 100 MG/ML VIAL (J1631) IM ONE (11:45)
[2022-01-15 18:33] VITALS: BP 130/70
[2022-01-15] MEDS ORDERED: VALBENAZINE 40 MG PO SCH (21:00)
[2022-01-15] MEDS: BENZTROPINE 2 MG TAB PO SCH (21:07)
[2022-01-15] MEDS: RAMELTEON 8 MG TAB (ROZEREM) PO SCH (21:07)
[2022-01-15 21:08] VITALS: BP 121/91
[2022-01-15] MEDS: PRAZOSIN 1 MG CAP PO SCH (21:08)
[2022-01-16 06:59] VITALS: BP 123/72
[2022-01-16] MEDS: FLUoxetine 20MG CAP PO SCH (08:37)
[2022-01-16] MEDS: lamoTRIgine 100MG TAB PO SCH (08:37)
[2022-01-16] MEDS: metFORMIN (GLUCOPHAGE) 500MG TAB PO SCH (08:38)
[2022-01-16] MEDS: CLOTRIMAZOLE 1% VAG CR 45 GM TOP SCH (08:38)
[2022-01-16] MEDS ORDERED: LAMO200T3 PO (09:14)
[2022-01-16] MEDS ORDERED: RAME8TAB2 PO (09:14)
[2022-01-16] MEDS ORDERED: HALD100I2 IM (09:14)
[2022-01-16] MEDS ORDERED: FLUO40CA PO (09:14)
[2022-01-16] MEDS ORDERED: HALO5TAB33 PO (09:14)
== END 2022-01-16 14:12 | disposition home or self-care (01) | DRG 885 ==
LOC: M ED 11:00 → UNDOADMIN 13:20 → M ED INP 13:20 → M PSY 01-12 14:41
PROVIDERS: ADMIT Psychiatry & Neurology Psychiatry; ATTEND Student in an Organized Health Care Education/Training Program
DX: F25.0 Schizoaffective disorder, bipolar type (principal); F43.10 Post-traumatic stress disorder, unspecified; F44.9 Dissociative and conversion disorder, unspecified; Z88.8 Allergy status to other drugs, medicaments and biological substances; Z79.899 Other long term (current) drug therapy

== ENCOUNTER 2022-02-27 17:59 | Emergency (ER) | payer OTHER ==
[~2022-02-27] VITALS: Ht 162.6 cm; Wt 105.5 kg
[~2022-02-27 17:59] MED LIST changes: +BENZ2TAB5 PO; +CLON1TAB8 PO; +HALD100I2 IM; +HALO5TAB33 PO
[2022-02-27 18:20] VITALS: BP 144/79
[2022-02-27] MEDS ORDERED: LUMA42CA (18:20)
[2022-02-27] MEDS ORDERED: ONDANSETRON 4MG 2ML VIAL IV ONE (19:15)
[2022-02-27] MEDS ORDERED: KETOROLAC 30 MG/ML 1ML VIAL IV ONE (19:15)
[2022-02-27] MEDS ORDERED: METH-1165 PO (20:09)
[2022-02-27] MEDS ORDERED: methocarbamoL 750 MG TAB PO ONE (20:10)
== END 2022-02-27 21:24 | disposition home or self-care (01) ==
LOC: M ED 17:59 → EDBD 17:59 → M ED 21:24
DX: S16.1XXA Strain of muscle, fascia and tendon at neck level, initial encounter (principal); V49.40XA Driver injured in collision with unspecified motor vehicles in traffic accident, initial encounter; F31.9 Bipolar disorder, unspecified; F43.10 Post-traumatic stress disorder, unspecified; Z96.653 Presence of artificial knee joint, bilateral; Z98.84 Bariatric surgery status; Z87.442 Personal history of urinary calculi; Z88.1 Allergy status to other antibiotic agents; Z79.4 Long term (current) use of insulin; Z79.899 Other long term (current) drug therapy; Y92.9 Unspecified place or not applicable; Y93.9 Activity, unspecified; Y99.9 Unspecified external cause status
CPT/HCPCS: 70450; 72125; 96374; 99284; J1885; J2405

== ENCOUNTER 2022-07-11 08:17 | Emergency (ER) | payer OTHER ==
[~2022-07-11] VITALS: Ht 162.6 cm; Wt 96.6 kg
[~2022-07-11 08:17] MED LIST changes: -BENZ-52 PO; +BENZ1TAB5 PO; +LUMA42CA; +METH-1165 PO; +TOPI-254 PO; -TOPI50TA9 PO
[2022-07-11 10:51] LABS: AMPHETAMINES LEVEL URINE NEGATIVE (NEGATIVE); BARBITURATES URINE NEGATIVE (NEGATIVE); CANNABINOIDS URINE NEGATIVE (NEGATIVE); COCAINE METABOLITE URINE NEGATIVE (NEGATIVE); METHADONE URINE NEGATIVE (NEGATIVE); OPIATES URINE NEGATIVE (NEGATIVE); PHENCYCLIDINE URINE NEGATIVE (NEGATIVE)
[2022-07-11] MEDS ORDERED: ZOLP12.518 PO (10:52)
[2022-07-11] MEDS ORDERED: BUSP5TA PO (10:52)
[2022-07-11] MEDS ORDERED: CLON0.5T2 (10:52)
[2022-07-11 11:05] LABS: BENZODIAZEPINES URINE POSITIVE (NEGATIVE)
[2022-07-11 11:09] LABS: BASO % 0.2 % (0.0-1.0); HEMATOCRIT 40.8 % (36.0-47.0); HEMOGLOBIN 13.2 g/dl (12.0-15.5); LYMPH # 1.2 10^3/uL (1.5-5.0); LYMPH % 9.4 % (24.0-44.0); MEAN CORPUSCULAR HEMOGLOBIN 30.2 pg (27.0-33.0); MEAN CORPUSCULAR HGB CONC 32.4 g/dl (32.0-36.5); MEAN CORPUSCULAR VOLUME 93.4 fl (80.0-96.0); MONO % 7.6 % (2.0-8.0); NEUTROPHILS # 10.4 10^3/uL (1.5-8.5); NEUTROPHILS % 82.2 % (36.0-66.0); PLATELET COUNT, AUTOMATED 253 10^3/uL (150-450); RED BLOOD COUNT 4.37 10^6/uL (4.00-5.40); WHITE BLOOD COUNT 12.7 10^3/uL (4.0-10.0)
[2022-07-11] MEDS ORDERED: MORPHINE 2 MG/ML 1ML VIAL IV ONE (11:10)
[2022-07-11] MEDS ORDERED: ONDANSETRON 4MG 2ML VIAL IV ONE (11:10)
[2022-07-11 11:55] LABS: ETHYL ALCOHOL (ETHANOL) < 0.003 % (0.000-0.010); LIPASE 18 U/L (12-53)
[2022-07-11 11:59] LABS: ALBUMIN 3.4 G/DL (3.2-5.2); ALKALINE PHOSPHATASE 100 U/L (46-116); ALT/SGPT 25 U/L (7.0-40); AST/SGOT 29 U/L (<34); BILIRUBIN,DIRECT 0.2 MG/DL (<0.4); BILIRUBIN,TOTAL 0.4 MG/DL (0.3-1.2); BLOOD UREA NITROGEN 8 MG/DL (9-23); CALCIUM LEVEL 8.8 MG/DL (8.5-10.1); CARBON DIOXIDE LEVEL 24 MMOL/L (20-31); CHLORIDE LEVEL 105 MMOL/L (98-107); CREATININE FOR GFR 0.69 MG/DL (0.55-1.30); GLOMERULAR FILTRATION RATE > 60.0 (>58); GLUCOSE, FASTING 128 MG/DL (60-100); POTASSIUM SERUM 4.1 MMOL/L (3.5-5.1); SODIUM LEVEL 137 MMOL/L (136-145)
[2022-07-11 13:53] VITALS: BP 111/68
== END 2022-07-11 13:54 | disposition short-term general hospital (02) ==
LOC: M ED 08:17
DX: S06.6X0A Traumatic subarachnoid hemorrhage without loss of consciousness, initial encounter (principal); R00.1 Bradycardia, unspecified; F20.9 Schizophrenia, unspecified; F31.9 Bipolar disorder, unspecified; D64.9 Anemia, unspecified; F10.10 Alcohol abuse, uncomplicated; Z79.83 Long term (current) use of bisphosphonates; Z79.899 Other long term (current) drug therapy; Z88.1 Allergy status to other antibiotic agents
CPT/HCPCS: 36415; 70450; 80048; 80076; 80307; 81001; 82077; 83690; 85025; 87635; 93005; 93041; 96374; 99285; J2270; J2405

== ENCOUNTER → 2022-09-01 | Outpatient (CLI) | payer OTHER ==
[~2022-09-01] MED LIST changes: +BENZ0.5T2 PO; -BENZ0.5T23 PO; +BENZ2TAB48 PO; -BENZ2TAB5 PO; +BUSP5TA PO; +CLON0.5T2; +ZOLP12.518 PO
== END ==
LOC: M RAD 15:57
PROVIDERS: ATTEND Neurological Surgery
DX: G08 Intracranial and intraspinal phlebitis and thrombophlebitis (principal); I61.8 Other nontraumatic intracerebral hemorrhage

== ENCOUNTER → 2022-10-13 | Outpatient (CLI) | payer OTHER ==
[~2022-10-13] MED LIST changes: +ISOVUE-370 76% 100ML VIAL As Ordered ONE
== END ==
LOC: M RAD 09:15
PROVIDERS: ATTEND Nurse Practitioner Family
DX: G08 Intracranial and intraspinal phlebitis and thrombophlebitis (principal)

== ENCOUNTER → 2022-11-05 | Outpatient (REF) | payer OTHER ==
[~2022-11-05] MED LIST changes: -ISOVUE-370 76% 100ML VIAL As Ordered ONE
== END ==
LOC: M WUC 19:20
PROVIDERS: ATTEND Student in an Organized Health Care Education/Training Program
DX: R30.0 Dysuria (principal)

== ENCOUNTER → 2023-01-19 | Outpatient (CLI) | payer OTHER ==
[~2023-01-19] MED LIST changes: +DIAZ-654 PO; +ISOVUE-370 76% 100ML VIAL As Ordered ONE; -VALI10TA PO
== END ==
LOC: M RAD 08:52
PROVIDERS: ATTEND Nurse Practitioner Family
DX: G08 Intracranial and intraspinal phlebitis and thrombophlebitis (principal)
CPT/HCPCS: 70470; Q9967

== ENCOUNTER → 2024-05-02 | Outpatient (CLI) | payer OTHER ==
[~2024-05-02] MED LIST changes: -ARIP1TAB43 PO; +ARIP20TA51 PO; -ISOVUE-370 76% 100ML VIAL As Ordered ONE; +TOPI-21 PO; -TOPI-254 PO; -ZOLP12.518 PO; +ZOLP12.535 PO
== END ==
LOC: M WHC 09:17
PROVIDERS: ATTEND Student in an Organized Health Care Education/Training Program
DX: N62 Hypertrophy of breast (principal); N60.11 Diffuse cystic mastopathy of right breast; Z80.3 Family history of malignant neoplasm of breast
CPT/HCPCS: 77066; G0279

== ENCOUNTER 2024-12-22 20:23 | Emergency (ER) | payer OTHER ==
[~2024-12-22] VITALS: Ht 162.6 cm; Wt 120.2 kg
[~2024-12-22 20:23] MED LIST changes: -AMBI12.52 PO; +LAMO-18 PO; -LAMO25TA4 PO; -PROZ20CA11 PO; +PROZ20CA12 PO; +TOPI-256 PO; -TOPI25TA10 PO; +ZOLP12.561 PO
[2024-12-22 22:02] LABS: BASO # 0.0 10^3/uL (0.0-0.2); BASO % 0.3 % (0.0-1.0); EOS # 0.0 10^3/uL (0.0-0.5); EOS % 0.2 % (0.0-3.0); LYMPH # 1.4 10^3/uL (1.5-5.0); LYMPH % 15.6 % (24.0-44.0); MONO # 1.1 10^3/uL (0.0-0.8); MONO % 12.8 % (2.0-8.0); NEUTROPHILS # 6.2 10^3/uL (1.5-8.5); NEUTROPHILS % 70.8 % (36.0-66.0); PLATELET COUNT, AUTOMATED 217 10^3/uL (150-450)
[2024-12-22 22:05] LABS: CALCIUM LEVEL 9.1 MG/DL (8.5-10.1); CARBON DIOXIDE LEVEL 24.0 MMOL/L (20-31); CHLORIDE LEVEL 104.0 MMOL/L (98-107); CREATININE FOR GFR 0.83 MG/DL (0.55-1.30); GLOMERULAR FILTRATION RATE 89.1 (>58); POTASSIUM SERUM 4.8 MMOL/L (3.5-5.1); SODIUM LEVEL 140.0 MMOL/L (136-145)
[2024-12-22] MEDS ORDERED: [UNRECOGNIZED DRUG - CODE] (23:01)
[2024-12-22] MEDS ORDERED: FLUO-365 (23:01)
[2024-12-22] MEDS ORDERED: DIAZ2TAB (23:01)
[2024-12-22] MEDS ORDERED: INGR80CA (23:01)
[2024-12-22] MEDS ORDERED: GABA-1172 (23:01)
[2024-12-22] MEDS ORDERED: OMEP40CA5 (23:01)
[2024-12-22] MEDS: BENZTROPINE MESYLATE 2 MG/2 ML VIAL IM ONE (23:37)
[2024-12-23] MEDS ORDERED: BENZ2TAB48 PO (00:57)
[2024-12-23 01:00] VITALS: TEMP 97
[2024-12-23 01:15] VITALS: BP 126/73; O2SAT 96
== END 2024-12-23 01:15 | disposition home or self-care (01) ==
LOC: M ED 20:23
DX: T88.7XXA Unspecified adverse effect of drug or medicament, initial encounter (principal); Z79.899 Other long term (current) drug therapy; Z79.891 Long term (current) use of opiate analgesic; Z87.442 Personal history of urinary calculi; Z98.84 Bariatric surgery status; Z86.73 Personal history of transient ischemic attack (TIA), and cerebral infarction without residual deficits
CPT/HCPCS: 70450; 80048; 85025; 93005; 96372; 99285; J0515

== ENCOUNTER → 2025-02-10 | Outpatient (CLI) | payer OTHER ==
[~2025-02-10] MED LIST changes: +DIAZ2TAB; +FLUO-365; +GABA-1172; +INGR80CA; -LUMA42CA; -LUMA42CA PO; +LUMA42CA4; +LUMA42CA4 PO; +OMEP40CA5; +[UNRECOGNIZED DRUG - CODE]
== END ==
LOC: M RAD 14:20
PROVIDERS: ATTEND Physician Assistant Surgical
DX: M25.562 Pain in left knee (principal); M25.462 Effusion, left knee; M67.52 Plica syndrome, left knee; M17.12 Unilateral primary osteoarthritis, left knee